=== PATIENT | female | born 1960 | race Caucasian/White ===

== ENCOUNTER 2020-12-11 11:43 | Outpatient (REF) | payer OTHER, SELFPAY | END 2020-12-11 11:44 | disposition home or self-care (01) | LOC: HO.LAB 11:43 | PROVIDERS: Visit Provider Internal Medicine | DX: Z20.822 Contact with and (suspected) exposure to COVID-19 (principal) | CPT/HCPCS: 36415; C9803; U0003; U0005 ==

== ENCOUNTER 2020-12-26 14:31 | Outpatient (REF) | payer OTHER, SELFPAY ==
[2020-12-26 15:08] LABS: COVID-19 Test Negative (Negative); IDNOW Serial# 55D5AD1C
== END 2020-12-26 14:32 | disposition home or self-care (01) ==
LOC: HO.LAB 14:31
PROVIDERS: Visit Provider Internal Medicine
DX: Z20.822 Contact with and (suspected) exposure to COVID-19 (principal)
CPT/HCPCS: 36415; 87635; C9803

== ENCOUNTER 2021-02-20 12:48 | Outpatient (REF) | payer OTHER, SELFPAY ==
[2021-02-20 14:19] LABS: MANUAL DIFF FLAG NO
[2021-02-20 14:33] LABS: Basophils Percent Auto 0.7 % (0-2); Eosinophils Absolute Auto 0.1 X10*3/uL (0.0-0.4); Hematocrit 39.2 % (37-47); Imm Gran Abs Auto 0.01 X10*3/uL (0.00-0.03); Imm Gran Pct Auto 0.2 % (0.0-0.4); Lymphocytes Absolute Auto 2.2 X10*3/uL (1.2-4.9); Lymphocytes Percent Auto 37.9 % (20-40); Mean Corpuscular HGB Conc 33.2 g/dl (31.0-35.0); Mean Corpuscular Hemoglobin 28.4 pg (27.0-33.0); Mean Corpuscular Volume 85.8 fL (80-98); Mean Platelet Volume 10.5 fL (9.4-12.3); Monocytes Absolute Auto 0.4 X10*3/uL (0.1-1.2); Monocytes Percent Auto 6.5 % (2-11); Neutrophils Absolute Auto 3.1 X10*3/uL (2.0-8.3); Neutrophils Percent Auto 53.7 % (45-73); Platelet Count 381 X10*3/uL (160-400); Red Blood Count 4.57 X10*6/uL (4.20-5.50); Red Cell Distribution Width 12.4 % (11.0-16.0); White Blood Count 5.7 X10*3/uL (4.8-10.8)
[2021-02-20 15:04] LABS: Alanine Aminotransferase 18 U/L (0-31); Albumin Level 4.1 g/dL (3.5-5.0); Alkaline Phosphatase 97 U/L (39-117); Anion Gap 15 (12-20); Aspartate Amino Transferase 15 U/L (5-31); Bilirubin Total 0.5 mg/dL (0.0-1.0); Blood Urea Nitrogen 15 mg/dL (9-16); Carbon Dioxide 25 mmol/L (22-29); Chloride 102 mmol/L (96-108); Estimated Glomerular Filt Rate > 60; Glucose Random 382 mg/dL (60-115); Potassium 4.9 mmol/L (3.3-5.1); Sodium 137 mmol/L (135-145); Total Protein 7.4 g/dL (6.5-8.0)
== END 2021-02-20 12:49 | disposition home or self-care (01) ==
LOC: HO.LAB 12:48
PROVIDERS: PCP Pediatrics; Visit Provider Dermatology
DX: L40.0 Psoriasis vulgaris (principal); Z79.899 Other long term (current) drug therapy
CPT/HCPCS: 36415; 80053; 85025

== ENCOUNTER 2022-12-03 10:46 | Observation (INO) | payer OTHER, SELFPAY ==
[2022-12-03] VITALS (9 sets, daily range): BP systolic 144–158; BP diastolic 65–72; PULSE 101–122; RESP 15–22; TEMP 36.2–37.6; O2SAT 90–95; BMI 33.9; BMI 34.1
--- NOTE | ~2022-12-03 | XR_ITS ---
EXAMINATION: XR CHEST CLINICAL INFORMATION: Hypoxia. Wheezing. COMPARISON: Chest x-ray and CTA chest 02/05/2020 TECHNIQUE: Frontal view of the chest was obtained. FINDINGS: Cardiac silhouette is normal in size. The lungs are adequately aerated. There is no lobar consolidation. No pleural effusion or pneumothorax. XR/XR chest 1V IMPRESSION: No acute pulmonary pathology.
[2022-12-03] MEDS: Albuterol Sulfate (0.083%) 2.5 MG/3 ML VIAL.NEB 10 MG INHALE (11:15)
--- NOTE | 2022-12-03 11:27 | ED.SOB ---
HPI - SOB/Dyspnea General Chief Complaint: Dyspnea Stated Complaint: Diff breathing, wheezing per EMS Time Seen by Provider: 12/03/22 11:05 Source: patient, EMS and motor vehicle parts interpreter Mode of arrival: EMS Limitations: no limitations History of Present Illness HPI Narrative: 62 yo Swedish speaking female with history of obesity, asthma, DM, hypothyroidism who presents to the ER from home for evaluation of SOB, coughing and wheezing for the last 2 days. She states she has had chest tightness and wheezing that has gotten worse for the last 2 days. She has been using her at home asthma medications without any improvement. She reports subjective fevers at home, denies any sick contacts. She is not bringing up any phelgm when she coughs. The cough is keeping her up at night. She reports being admitted in the past for her asthma but has never been intubated. MD elicited complaint: shortness of breath and cough Pertinent past history: asthma Onset (ago): day(s) (2) Context: recent illness Timing: progressively worsening Severity: severe Exacerbating factors: exertion, movement and coughing Relieving factors: nothing Known history of: asthma Associated symptoms: fever, cough and wheezing Treatment prior to arrival: oxygen and bronchodilator Related Data Home oxygen amount: none Home Medications Medication Instructions Recorded Confirmed insulin glargine 100 unit/mL (3 45 unit subcut BEDTIME 12/03/22 12/03/22 mL) subcutaneous pen (Lantus Solostar U-100 Insulin) levothyroxine 175 mcg tablet 1 tab PO DAILY@0600 12/03/22 12/03/22 Allergies Allergy/AdvReac Type Severity Reaction Status Date / Time No Known Allergies Allergy Verified 12/03/22 10:52 [No Known Allergies*] Review of Systems Review of Systems: Yes all other systems are reviewed and are negative [facility] Past Medical History Medical History (Updated 12/03/22 @ 13:15 by Jerry Azevedo) Asthma Diabetes type 2, controlled Hypothyroid Social History Social History Alcohol intake: never Smoked in Last 30 Days: No Use of substances other than those prescribed or required for medical reasons: No Advance Directives: No Advance Directives Information Provided: Yes Physical Exam Vital Signs: Vital Signs: Last Vital Signs Temp 99.7 F 12/03/22 13:17 Pulse 122 H 12/03/22 14:07 Resp 16 12/03/22 14:07 BP 158/72 H 12/03/22 13:43 Pulse Ox 92 12/03/22 13:43 O2 Del Method 12/03/22 13:43 BMI result Body Mass Index 33.9 Appearance: Alert. Oriented X3. No acute distress. Eyes: Pupils equal, round and reactive to light. ENT: Pharynx normal. Neck: Normal inspection. Neck supple. CVS: Tachycardic, regular rhythm, heart rate 120. Pulses normal. Respiratory: Mild respiratory distress. Breath sounds with audible wheezing, prolonged expiratory phase with inspiratory and expiratory wheezing throughout. Abdomen: Obese, soft and nontender. +BS x4 Skin: Skin warm and dry. Normal skin color. Normal skin turgor. No rashes. Extremities: No lower extremity edema. Neuro: Oriented X 3. No motor deficit. No sensory deficit. Course Course Course Narrative: 62-year-old female presenting for evaluation of shortness of breath and wheezing for the last 2 days. Arrives to the ER saturating 90% on room air. She has audibly wheezy and tachycardic. She received 100 mg of Solu-Cortef and a DuoNeb in route. Will order 10 mg of albuterol now, labs and reassess. Reevaluation(s) Reevaluation #1: Patient continues to be tight and wheezy, minimal improvement after nebulized treatment here. Chest x-ray without pneumonia. Concern she will need admission. Medications Administered Discontinued Medications Generic Name Dose Route Start Last Admin Trade Name Freq PRN Reason Stop Dose Admin Albuterol Sulfate 10 mg 12/03/22 11:09 12/03/22 11:15 Albuterol Sulfate (0.083%) 2.5 Mg/3 Ml Vial.Neb INHALE 12/03/22 11:10 10 mg ONCE ONE Administration Albuterol Sulfate 5 mg 12/03/22 13:32 12/03/22 14:07 Albuterol Sulfate (0.083%) 2.5 Mg/3 Ml Vial.Neb INHALE 12/03/22 13:33 5 mg ONCE ONE Administration Sodium Chloride 1,000 mls @ 999 mls/hr 12/03/22 13:00 12/03/22 14:30 Ns IVCONT 12/03/22 14:00 999 mls/hr .Q1H1M CRISTEL Administration Insulin Human Lispro 10 unit 12/03/22 13:31 12/03/22 14:30 Insulin Lispro 100 Unit/Ml 3 Ml Vial SUBCUT 12/03/22 13:32 10 unit ONCE ONE Administration Methylprednisolone Sodium Succinate 60 mg 12/03/22 13:31 12/03/22 14:30 Methylprednisolone Sod Succ 125 Mg/2 Ml Vial IVPUSH 12/03/22 13:32 60 mg ONCE ONE Administration Medical Decision Making Medical Decision Making [facility] Narrative: 62-year-old female with history of asthma, diabetes, hypothyroidism presents to the ER for evaluation of 2 days of shortness of breath and wheezing along with coughing and subjective fevers. On arrival to the ER she is audibly wheezy, saturating 90% on room air. She is able to speak in complete sentences. Chest x-ray was performed, showing no pneumonia. Viral studies were done which were negative for COVID, flu, RSV. Lab workup was unremarkable. She was given 2 rounds of albuterol nebulizer, IV steroids with minimal relief. She remains with a pulse oximetry of 90-92%. Still has extensive wheezing bilaterally. Will plan to admit for further management of acute asthma exacerbation. Differential Diagnosis Differential Diagnoses: The differential diagnosis associated with the presentation includes Acute asthma exacerbation, acute CHF exacerbation, pneumonia, viral syndrome, COVID, flu, RSV, pneumonitis, VCD Admission/Observation Consideration of admission/observation: Escalation of care including admission/observation considered No improvement after multiple breathing treatments, will require admission for further management Consult Healthcare Provider Management of the patient was discussed with: Hospitalist Lab Data [facility] Lab Attestation statement: I reviewed the patient's lab results. Hyperglycemia without any evidence anion gap for diabetic ketoacidosis 12/03/22 11:47 12/03/22 11:47 Labs: Lab Results 12/03/22 12/03/22 12/03/22 Range/Units 11:12 11:47 11:47 WBC 5.7 (4.8-10.8) X10*3/uL RBC 4.76 (4.20-5.50) X10*6/uL Hgb 13.6 (12.0-16.0) g/dl Hct 41.1 (37.0-47.0) % MCV 86.3 (80.0-98.0) fL MCH 28.6 (27.0-33.0) pg MCHC 33.1 (31.0-35.0) g/dl RDW 12.0 (11.0-16.0) % Plt Count 236 (160-400) X10*3/uL MPV 10.2 (9.4-12.3) fL Immature Gran % (Auto) 0.0 (0.0-0.4) % Neut % (Auto) 57.3 (45-73) % Lymph % (Auto) 31.1 (20-40) % [place] % (Auto) 9.9 (2-11) % Eos % (Auto) 1.2 (0-4) % Baso % (Auto) 0.5 (0-2) % Lymph # (Auto) 1.8 (1.2-4.9) X10*3/uL [place] # (Auto) 0.6 (0.1-1.2) X10*3/uL Eos # (Auto) 0.1 (0.0-0.4) X10*3/uL Baso # (Auto) 0.0 (0.0-0.2) X10*3/uL Abs Immat Gran (auto) 0.00 (0.00-0.03) X10*3/uL Absolute Neuts (auto) 3.3 (2.0-8.3) x10*3/uL Absolute Nucleated RBC 0.000 (0.0-0.012) X10*3/uL Nucleated RBC % (auto) 0.0 (0.0-0.2) /100WBC Sodium 136 (135-145) mmol/L Potassium 3.7 D (3.3-5.1) mmol/L Chloride 103 (96-108) mmol/L Carbon Dioxide 24 (22-29) mmol/L Anion Gap 13 (12-20) BUN 14 (9-16) mg/dL Creatinine 0.88 (0.5-1.4) mg/dL Estim Creat Clear Calc 78.0 Estimated GFR > 60 Random Glucose 324 H (60-115) mg/dL Calcium 8.6 D (8.4-10.2) mg/dL Total Bilirubin 0.6 (0.0-1.0) mg/dL AST 18 (5-31) U/L ALT 23 (0-31) U/L Alkaline Phosphatase 91 (39-117) U/L B-Natriuretic Peptide (<100) pg/mL Total Protein 6.9 (6.5-8.0) g/dL Albumin 3.8 (3.5-5.0) g/dL Influenza Type A (PCR) NEGATIVE (Negative) Influenza Type B (PCR) NEGATIVE (Negative) RSV RNA Qual (PCR) NEGATIVE (Negative) SARS-CoV-2 RNA (RT-PCR) NEGATIVE (Negative) 12/03/22 Range/Units 11:47 WBC (4.8-10.8) X10*3/uL RBC (4.20-5.50) X10*6/uL Hgb (12.0-16.0) g/dl Hct (37.0-47.0) % MCV (80.0-98.0) fL MCH (27.0-33.0) pg MCHC (31.0-35.0) g/dl RDW (11.0-16.0) % Plt Count (160-400) X10*3/uL MPV (9.4-12.3) fL Immature Gran % (Auto) (0.0-0.4) % Neut % (Auto) (45-73) % Lymph % (Auto) (20-40) % [place] % (Auto) (2-11) % Eos % (Auto) (0-4) % Baso % (Auto) (0-2) % Lymph # (Auto) (1.2-4.9) X10*3/uL [place] # (Auto) (0.1-1.2) X10*3/uL Eos # (Auto) (0.0-0.4) X10*3/uL Baso # (Auto) (0.0-0.2) X10*3/uL Abs Immat Gran (auto) (0.00-0.03) X10*3/uL Absolute Neuts (auto) (2.0-8.3) x10*3/uL Absolute Nucleated RBC (0.0-0.012) X10*3/uL Nucleated RBC % (auto) (0.0-0.2) /100WBC Sodium (135-145) mmol/L Potassium (3.3-5.1) mmol/L Chloride (96-108) mmol/L Carbon Dioxide (22-29) mmol/L Anion Gap (12-20) BUN (9-16) mg/dL Creatinine (0.5-1.4) mg/dL Estim Creat Clear Calc Estimated GFR Random Glucose (60-115) mg/dL Calcium (8.4-10.2) mg/dL Total Bilirubin (0.0-1.0) mg/dL AST (5-31) U/L ALT (0-31) U/L Alkaline Phosphatase (39-117) U/L B-Natriuretic Peptide < 10 (<100) pg/mL Total Protein (6.5-8.0) g/dL Albumin (3.5-5.0) g/dL Influenza Type A (PCR) (Negative) Influenza Type B (PCR) (Negative) RSV RNA Qual (PCR) (Negative) SARS-CoV-2 RNA (RT-PCR) (Negative) Independent Interpretation I performed an independent interpretation of an: EKG and Plain X-Ray Interpretation: EKG with sinus tachycardia, ventricular rate 120 beats per minute, artifact present, normal NM interval, normal QTC, no ST segment elevations or depressions. Chest x-ray is clear without any evidence of pneumonia or effusion Radiology Impression Discussion of test interpretation with radiology: I have reviewed the radiologist's reading. Radiologist Impression: radiologist impression is no acute pulmonary pathology Independent Historian Clinical information obtained from an independent historian. History obtained from or confirmed by: EMS External Record Review External record reviewed: Prior outpatient labs and Prior outpatient radiology Prescription Management I considered prescription management with: Antibiotic No infiltrate on x-ray, hold off on antibiotics for now. No history of COPD Chronic Conditions Patient?s care impacted by: Other (Asthma) Critical Care Time Critical Care Time Critical Care Time: Yes Total Critical Care Time: 36 Attestation: I have personally provided critical care time exclusive of time spent on separately billable procedures. Time includes review of lab data, radiology results, discussion with consultants, and monitoring for potential decompensation. Intervention performed as documented. Discharge Plan Discharge Clinical Impression: Asthma with exacerbation Patient Disposition: Admitted As Inpatient
[2022-12-03 11:57] LABS: MANUAL DIFF FLAG NO
[2022-12-03 11:57] LABS: Influenza A PCR NEGATIVE (Negative); Influenza B PCR NEGATIVE (Negative); Resp Syncy Virus RNA Qual PCR NEGATIVE (Negative); SARS COV2 PCR INHOUSE NEGATIVE (Negative)
[2022-12-03 11:58] LABS: Basophils Percent Auto 0.5 % (0-2); Eosinophils Absolute Auto 0.1 X10*3/uL (0.0-0.4); Eosinophils Percent Auto 1.2 % (0-4); Hematocrit 41.1 % (37.0-47.0); Hemoglobin 13.6 g/dl (12.0-16.0); Lymphocytes Absolute Auto 1.8 X10*3/uL (1.2-4.9); Lymphocytes Percent Auto 31.1 % (20-40); Mean Corpuscular HGB Conc 33.1 g/dl (31.0-35.0); Mean Corpuscular Hemoglobin 28.6 pg (27.0-33.0); Mean Corpuscular Volume 86.3 fL (80.0-98.0); Mean Platelet Volume 10.2 fL (9.4-12.3); Monocytes Absolute Auto 0.6 X10*3/uL (0.1-1.2); Monocytes Percent Auto 9.9 % (2-11); Neutrophils Absolute Auto 3.3 x10*3/uL (2.0-8.3); Neutrophils Percent Auto 57.3 % (45-73); Platelet Count 236 X10*3/uL (160-400); Red Blood Count 4.76 X10*6/uL (4.20-5.50); White Blood Count 5.7 X10*3/uL (4.8-10.8)
[2022-12-03 12:12] LABS: Alanine Aminotransferase 23 U/L (0-31); Albumin Level 3.8 g/dL (3.5-5.0); Alkaline Phosphatase 91 U/L (39-117); Anion Gap 13 (12-20); Aspartate Amino Transferase 18 U/L (5-31); Bilirubin Total 0.6 mg/dL (0.0-1.0); Blood Urea Nitrogen 14 mg/dL (9-16); Calcium 8.6 mg/dL (8.4-10.2); Carbon Dioxide 24 mmol/L (22-29); Chloride 103 mmol/L (96-108); Estimated Glomerular Filt Rate > 60; Glucose Random 324 mg/dL (60-115); Potassium 3.7 mmol/L (3.3-5.1); Sodium 136 mmol/L (135-145); Total Protein 6.9 g/dL (6.5-8.0)
[2022-12-03 12:18] LABS: B Type Natriuretic Peptide < 10 pg/mL (<100)
--- NOTE | 2022-12-03 12:59 | ECG_ITS ---
Test Reason : sob Blood Pressure : / mmHG Vent. Rate : 121 BPM Atrial Rate : 121 BPM P-R Int : 128 ms QRS Dur : 072 ms QT Int : 318 ms P-R-T Axes : 077 047 -41 degrees QTc Int : 451 ms Sinus tachycardia T wave abnormality, consider inferior ischemia Abnormal ECG When compared to the previous EKG of No significant changes seen Referred By: Liyah Huang Electronically Signed By:Florentino Rosas
--- NOTE | 2022-12-03 14:01 | PHA.MEDREC ---
Pharmacy Consult ? Medication Reconciliation Pharmacy has completed the medication reconciliation. Patient states she is only on glargine 45 units at bed and levothyroxine 175 mcg in the morning
[2022-12-03] MEDS: Albuterol Sulfate (0.083%) 2.5 MG/3 ML VIAL.NEB 5 MG INHALE (14:07)
[2022-12-03] MEDS: methylPREDNISolone Sod Succ 125 MG/2 ML VIAL 60 MG IVPUSH (14:30)
[2022-12-03] MEDS: Insulin Lispro 100 UNIT/ML 3 ML VIAL 10 UNIT SUBCUT (14:30)
[2022-12-03] MEDS: 0.9 % Sodium Chloride 1,000 ML 999 ML IVCONT (14:30)
--- NOTE | 2022-12-03 14:37 | PC.NURSE ---
pt medicated per provider order, 1L NS running, resting quietly.
--- NOTE | 2022-12-03 15:27 | PM.IMHP ---
History of Present Illness Date of Service: 12/03/22 Attending physician on admission: Kam [facility] Chief Complaint: SOB, wheezing Pt is a 62-year-old female with a PMH significant for asthma, hypothyroidism, HTN, HLD, and insulin-dependent diabetes who presents to the ED with?wheezing and SOB x3 days. Cough occasionally productive of yellowish sputum. Pt states she has been taking her home inhalers with little to no improvement. Has been experiencing chest tightness with inspiration. Patient also states that she has been admitted to the hospital before for acute asthma exacerbations. Patient denies fever, chills, nausea, vomiting, diarrhea. No abdominal pain. In the ED patient was afebrile, tachycardic up to 122, tachypneic up to 22, and satting at 90% O2 on RA. Labs were significant for random glucose of 324, otherwise unremarkable. Patient tested negative for influenza types A and B, RSV, COVID. CXR was clear for acute cardiopulmonary disease. EKG demonstrated sinus tachycardia with no evidence of ST elevations or depressions. Pt was treated with DuoNebs, IVF, and Solu-Medrol. Pt will be admitted to the hospital on observation for severe persistent asthma with acute exacerbation. Review of Systems Review of Systems: SOB Wheezing Persistent cough productive of yellowish sputum Chest tightness with inspiration No fever, chills, nausea, diarrhea, abdominal pain Yes all other systems are reviewed and are negative [facility] Medical History Asthma Diabetes type 2, controlled Hypothyroid Social History Household Members: Family Housing: House Alcohol intake: never Patient Tobacco Use Status: Former Tobacco user Smoked in Last 30 Days: No Use of substances other than those prescribed or required for medical reasons: No Currently Displaying Signs/Symptoms of Drug Intoxication Withdrawal: No Any prior treatment program specific to substance use: No Have you been hit, kicked, punched, or otherwise hurt by someone within the past year? If so, by whom?: No Do you feel safe in your current relationship?: Yes Is there a partner from a previous relationship who is making you feel unsafe now?: No Are you made to feel afraid or neglected: No Advance Directives: No Advance Directives Information Provided: Yes Do you have thoughts of harming others: None Do you have a plan to hurt others: No Plan Recently lost weight without trying: No Eating poorly because of decreased appetite: No Nutrition Risks: No Nutritional Risk Patient : No : No Poor oral hygiene: No Meds Allergies Allergy/AdvReac Type Severity Reaction Status Date / Time No Known Allergies Allergy Verified 12/03/22 10:52 [No Known Allergies*] Active Medications: Current Medications Pharmacy Consult (Consult Rx Perform Med Rec) 1 each MISCELLANE ONCE PRN PRN Reason: Consult order Home Medications Medication Instructions Recorded Confirmed Last Taken Type insulin glargine 100 unit/mL (3 45 unit subcut BEDTIME 12/03/22 12/03/22 12/02/22 History mL) subcutaneous pen (Lantus Solostar U-100 Insulin) levothyroxine 175 mcg tablet 1 tab PO DAILY@0600 12/03/22 12/03/22 12/03/22 History Physical Exam Vital Signs and Narrative: Vital Signs: Last Vital Signs Temp 99.7 F 12/03/22 13:17 Pulse 122 H 12/03/22 14:07 Resp 16 12/03/22 14:07 BP 158/72 H 12/03/22 13:43 Pulse Ox 92 12/03/22 13:43 O2 Del Method 12/03/22 13:43 BMI result Body Mass Index 33.9 Constitutional: Alert, in no acute distress. Mental Status: Oriented to person, place and time. Eyes: Pupils are equal, round, and reactive to light. Ear, Nose, and Throat: Oropharynx clear, mucous membranes moist. Ears and nose without deformities. Trachea midline. Respiratory: Audible wheezing. Diffuse wheezing throughout bilaterally. Cardiovascular: S1, S2 regular. No murmurs, rubs, or gallops. Gastrointestinal: Abdomen soft, non-tender, non-distended. Normal bowel sounds. Neurologic: Cranial nerves II-XII are grossly intact bilaterally. No focal neurological deficits. Moves all extremities spontaneously. Skin: No rashes or lesions noted. Musculoskeletal: No cyanosis or clubbing. Extremities: Chronic non-pitting edema bilaterally. Psychiatric: Normal mood and affect. Results Labs 12/03/22 11:47 12/03/22 11:47 Labs: Laboratory Results - last 24 hr 12/03/22 12/03/22 12/03/22 11:12 11:47 11:47 MCV 86.3 MCH 28.6 MCHC 33.1 RDW 12.0 Plt Count 236 MPV 10.2 Immature Gran % (Auto) 0.0 Neut % (Auto) 57.3 Lymph % (Auto) 31.1 [place] % (Auto) 9.9 Eos % (Auto) 1.2 Baso % (Auto) 0.5 Lymph # (Auto) 1.8 [place] # (Auto) 0.6 Eos # (Auto) 0.1 Baso # (Auto) 0.0 Abs Immat Gran (auto) 0.00 Absolute Neuts (auto) 3.3 Absolute Nucleated RBC 0.000 Nucleated RBC % (auto) 0.0 Anion Gap 13 Estim Creat Clear Calc 78.0 Estimated GFR > 60 Random Glucose 324 H Calcium 8.6 D Total Bilirubin 0.6 AST 18 ALT 23 Alkaline Phosphatase 91 B-Natriuretic Peptide Total Protein 6.9 Albumin 3.8 Influenza Type A (PCR) NEGATIVE Influenza Type B (PCR) NEGATIVE RSV RNA Qual (PCR) NEGATIVE SARS-CoV-2 RNA (RT-PCR) NEGATIVE 12/03/22 11:47 MCV MCH MCHC RDW Plt Count MPV Immature Gran % (Auto) Neut % (Auto) Lymph % (Auto) [place] % (Auto) Eos % (Auto) Baso % (Auto) Lymph # (Auto) [place] # (Auto) Eos # (Auto) Baso # (Auto) Abs Immat Gran (auto) Absolute Neuts (auto) Absolute Nucleated RBC Nucleated RBC % (auto) Anion Gap Estim Creat Clear Calc Estimated GFR Random Glucose Calcium Total Bilirubin AST ALT Alkaline Phosphatase B-Natriuretic Peptide < 10 Total Protein Albumin Influenza Type A (PCR) Influenza Type B (PCR) RSV RNA Qual (PCR) SARS-CoV-2 RNA (RT-PCR) Imaging Radiologist's Impressions: Impressions Chest X-Ray 12/03/22 12:04 IMPRESSION: No acute pulmonary pathology. Assessment and Plan (1) Asthma with exacerbation: Status: Acute Plan Pt is a 62-year-old female with a PMH significant for asthma, hypothyroidism, HTN, HLD, and insulin-dependent diabetes who presents to the ED with?wheezing and SOB x3 days. Pt will be admitted to the hospital on observation for treatment of severe persistent asthma with acute exacerbation. Severe persistent asthma with acute exacerbation Patient with audible wheezing x3 days, home inhalers have provided virtually no relief Patient tachycardic at 122, not hypoxic satting at 92 % O2 on room air Solu-Medrol 40 mg q.8 DuoNebs q4 while awake Admit to observation Insulin-dependent Diabetes Hold home meds SSI Hypothyroidism Continue levothyroxine Full Code Attending:?Dr. Larsen DVT Prophylaxis: Lovenox Patient will be admitted to observation for treatment of severe persistent asthma with acute exacerbation. Time Spent With Patient Time: Total time managing care of this patient today ____ minutes. Quality Stroke Does the patient have a stroke diagnosis?: No VTE Prior VTE?: No VTE Risk Level:: Medical - moderate - high VTE Device Contraindication: Treatment Not Indicated VTE Drug Contraindication: N/A - Med Ordered
--- NOTE | 2022-12-03 16:42 | PC.NURSE ---
RN-RN report called into S3.
[2022-12-03 16:53] LABS: Glucose, Whole Blood 361 mg/dL (60-115)
[2022-12-03 17:10] LABS: Glucose, Whole Blood 348 mg/dL (60-115)
[2022-12-03] MEDS: Enoxaparin Sodium 40 MG/0.4 ML SYRINGE SUBCUT (17:26)
[2022-12-03] MEDS: Insulin Lispro 100 UNIT/ML 3 ML VIAL SUBCUT ×2 (17:27→21:26)
[2022-12-03 20:13] LABS: Glucose, Whole Blood 440 mg/dL (60-115)
[2022-12-03] MEDS: Insulin Regular, Human 100 UNIT/ML 3 ML VIAL IVPUSH (21:24)
[2022-12-03] MEDS: methylPREDNISolone Sod Succ 40 MG/ML VIAL IVPUSH (21:24)
[2022-12-03] MEDS: Insulin Glargine,Hum.rec.anlog 100 UNIT/ML 10 ML VIAL 31 UNIT SUBCUT (21:25)
[2022-12-03] MEDS: 0.9 % Sodium Chloride Flush 3 ML SYRINGE IVFLUSH (22:29)
[2022-12-04] VITALS (9 sets, daily range): BP systolic 132–167; BP diastolic 56–87; PULSE 80–120; RESP 16–22; TEMP 35.9–36.6; O2SAT 90–98
[2022-12-04] MEDS: methylPREDNISolone Sod Succ 40 MG/ML VIAL IVPUSH (05:17)
[2022-12-04] MEDS: Levothyroxine Sodium 175 MCG TABLET PO (05:23)
[2022-12-04 07:25] LABS: Glucose, Whole Blood 394 mg/dL (60-115)
[2022-12-04] MEDS: Insulin Lispro 100 UNIT/ML 3 ML VIAL SUBCUT ×5 (07:54→21:10)
[2022-12-04] MEDS: 0.9 % Sodium Chloride Flush 3 ML SYRINGE IVFLUSH ×3 (07:55→21:17)
--- NOTE | 2022-12-04 08:54 | HO.PM.IMPN ---
Subjective Subjective Date of Service: 12/04/22 Interval History: f/u on asthma exacerbation feels better, still wheezing Physical Exam Vital Signs: Vital Signs: Last Vital Signs Temp 96.6 F L 12/04/22 07:29 Pulse 95 12/04/22 08:13 Resp 18 12/04/22 08:13 BP 138/68 12/04/22 07:29 Pulse Ox 92 12/04/22 07:29 O2 Del Method 12/04/22 07:29 BMI result Body Mass Index 34.1 Const: Other: General: AO X 3, no acute distress Resp: ins/ex wheezes CVS: S1,S2,RRR GI: +BS, NT, no distention Skin: No rash Neuro: motor grossly intact Psych: appropriate affect Objective Data Active Medications Acetaminophen (Acetaminophen 325 Mg Tablet) 650 mg PO Q6H PRN PRN Reason: Pain, Mild (Pain Scale 1-3) Albuterol Sulfate 2.5 mg/ (Ipratropium [place] 0.5 mg) 0 mg INHALE RQ4H WHILE AWAKE [facility] Last Admin: 12/04/22 08:10 Dose: 2.5 each Documented By: ANDRÉS Docusate Sodium (Docusate Sodium 100 Mg Capsule) 100 mg PO DAILY PRN PRN Reason: Constipation Enoxaparin Sodium (Enoxaparin Sodium 40 Mg/0.4 Ml Syringe) 40 mg SUBCUT Q24H [facility] Last Admin: 12/03/22 17:26 Dose: 40 mg Documented By: SAHARA-ULISES Glucose (Glucose Gel 15 Gm Gel..Gram.) 15 gm PO Q15M PRN; Protocol PRN Reason: per Hypoglycemia Standing Ord. Dextrose (D10) 250 mls @ 750 mls/hr IV Q15M PRN; Protocol PRN Reason: per Hypoglycemia Standing Ord. Insulin Glargine (Insulin Glargine,Hum.Rec.Anlog 100 Unit/Ml 10 Ml Vial) 31 unit SUBCUT BEDTIME [facility] Last Admin: 12/03/22 21:25 Dose: 31 unit Documented By: JUAN Insulin Human Lispro (Insulin Lispro 100 Unit/Ml 3 Ml Vial) 0 unit SUBCUT QIDACHS [facility]; Protocol Last Admin: 12/04/22 07:54 Dose: 10 unit Documented By: GRACE Levothyroxine Sodium (Levothyroxine Sodium 175 Mcg Tablet) 175 mcg PO DAILY@0600 [facility] Last Admin: 12/04/22 05:23 Dose: 175 mcg Documented By: JUAN Methylprednisolone Sodium Succinate (Methylprednisolone Sod Succ 40 Mg/Ml Vial) 40 mg IVPUSH Q8H [facility] Last Admin: 12/04/22 05:17 Dose: 40 mg Documented By: JUAN Ondansetron HCl (Ondansetron Hcl 4 Mg/2 Ml Vial) 4 mg IVPUSH Q8H PRN PRN Reason: Nausea and Vomiting Pharmacy Consult (Consult Rx Perform Med Rec) 1 each MISCELLANE ONCE PRN PRN Reason: Consult order Sodium Chloride (0.9 % Sodium Chloride Flush 3 Ml Syringe) 3 ml IVFLUSH QSHIFT [facility] Last Admin: 12/04/22 07:55 Dose: 3 ml Documented By: GRACE Labs 12/03/22 11:47 12/03/22 11:47 Labs: Laboratory Results - last 24 hr 12/03/22 12/03/22 12/03/22 11:12 11:47 11:47 MCV 86.3 MCH 28.6 MCHC 33.1 RDW 12.0 Plt Count 236 MPV 10.2 Immature Gran % (Auto) 0.0 Neut % (Auto) 57.3 Lymph % (Auto) 31.1 [place] % (Auto) 9.9 Eos % (Auto) 1.2 Baso % (Auto) 0.5 Lymph # (Auto) 1.8 [place] # (Auto) 0.6 Eos # (Auto) 0.1 Baso # (Auto) 0.0 Abs Immat Gran (auto) 0.00 Absolute Neuts (auto) 3.3 Absolute Nucleated RBC 0.000 Nucleated RBC % (auto) 0.0 Anion Gap 13 Estim Creat Clear Calc 78.0 Estimated GFR > 60 POC Glucose Random Glucose 324 H Calcium 8.6 D Total Bilirubin 0.6 AST 18 ALT 23 Alkaline Phosphatase 91 B-Natriuretic Peptide Total Protein 6.9 Albumin 3.8 Influenza Type A (PCR) NEGATIVE Influenza Type B (PCR) NEGATIVE RSV RNA Qual (PCR) NEGATIVE SARS-CoV-2 RNA (RT-PCR) NEGATIVE 12/03/22 12/03/22 12/03/22 11:47 16:50 17:06 MCV MCH MCHC RDW Plt Count MPV Immature Gran % (Auto) Neut % (Auto) Lymph % (Auto) [place] % (Auto) Eos % (Auto) Baso % (Auto) Lymph # (Auto) [place] # (Auto) Eos # (Auto) Baso # (Auto) Abs Immat Gran (auto) Absolute Neuts (auto) Absolute Nucleated RBC Nucleated RBC % (auto) Anion Gap Estim Creat Clear Calc Estimated GFR POC Glucose 361 H* 348 H Random Glucose Calcium Total Bilirubin AST ALT Alkaline Phosphatase B-Natriuretic Peptide < 10 Total Protein Albumin Influenza Type A (PCR) Influenza Type B (PCR) RSV RNA Qual (PCR) SARS-CoV-2 RNA (RT-PCR) 12/03/22 12/04/22 19:59 07:16 MCV MCH MCHC RDW Plt Count MPV Immature Gran % (Auto) Neut % (Auto) Lymph % (Auto) [place] % (Auto) Eos % (Auto) Baso % (Auto) Lymph # (Auto) [place] # (Auto) Eos # (Auto) Baso # (Auto) Abs Immat Gran (auto) Absolute Neuts (auto) Absolute Nucleated RBC Nucleated RBC % (auto) Anion Gap Estim Creat Clear Calc Estimated GFR POC Glucose 440 H* 394 H* Random Glucose Calcium Total Bilirubin AST ALT Alkaline Phosphatase B-Natriuretic Peptide Total Protein Albumin Influenza Type A (PCR) Influenza Type B (PCR) RSV RNA Qual (PCR) SARS-CoV-2 RNA (RT-PCR) Assessment and Plan (1) Asthma with exacerbation: Status: Acute Plan 62-year-old female with a PMH significant for asthma, hypothyroidism, HTN, HLD, and insulin-dependent diabetes who presents to the ED with?wheezing and SOB x3 days. Pt will be admitted to the hospital on observation for treatment of severe persistent asthma with acute exacerbation. Severe persistent asthma with acute exacerbation Patient with audible wheezing , home inhalers have provided virtually no relief Overall better Solu-Medrol 40 mg q.bid DuoNebs q4 while awake observe 1 more day, home tomorrow Insulin-dependent Diabetes with hyperglycemia d/t steroid Hold home meds SSI + additional insulin PRN Hypothyroidism Continue levothyroxine Full Code Attending:?Dr. Larsen DVT Prophylaxis: Lovenox Patient will be admitted to observation for treatment of severe persistent asthma with acute exacerbation. Time Spent With Patient Time: Total time managing care of this patient today ____ minutes. Time Spent With Patient Time: Total time managing care of this patient today ____ minutes. Quality Stroke Does the patient have a stroke diagnosis?: No VTE Prior VTE?: No VTE Risk Level:: Medical - moderate - high VTE Device Contraindication: Treatment Not Indicated VTE Drug Contraindication: N/A - Med Ordered
[2022-12-04 11:09] LABS: Glucose, Whole Blood 428 mg/dL (60-115)
--- NOTE | 2022-12-04 13:04 | PC.NURSE ---
IV methylpredisolone held per Dr Larsen.
[2022-12-04 16:40] LABS: Glucose, Whole Blood 427 mg/dL (60-115)
[2022-12-04] MEDS: Insulin Lispro 100 UNIT/ML 3 ML VIAL 7 UNIT SUBCUT (18:01)
[2022-12-04] MEDS: Enoxaparin Sodium 40 MG/0.4 ML SYRINGE SUBCUT (18:01)
[2022-12-04 20:41] LABS: Glucose, Whole Blood 402 mg/dL (60-115)
[2022-12-04] MEDS: Insulin Glargine,Hum.rec.anlog 100 UNIT/ML 10 ML VIAL 31 UNIT SUBCUT (21:10)
[2022-12-05] VITALS (9 sets, daily range): BP systolic 137–148; BP diastolic 62–72; PULSE 91–113; RESP 18–20; TEMP 36.1–36.4; O2SAT 92–100
[2022-12-05] MEDS: Acetaminophen 325 MG TABLET 650 MG PO (04:13)
[2022-12-05] MEDS: Levothyroxine Sodium 175 MCG TABLET PO (05:50)
[2022-12-05 07:57] LABS: Glucose, Whole Blood 243 mg/dL (60-115)
--- NOTE | 2022-12-05 08:08 | PM.DS ---
DS: Providers Provider Date of Service: 12/05/22 Date of admission: 12/03/22 16:11 Primary care physician: MARY ANN Baptiste DS: Diagnosis Discharge Diagnosis (1) Asthma with exacerbation: Status: Acute DS: Summary Hospital Course Hospital Course: Chief Complaint: SOB, wheezing Pt is a 62-year-old female with a PMH significant for asthma, hypothyroidism, HTN, HLD, and insulin-dependent diabetes who presents to the ED with?wheezing and SOB x3 days. Cough occasionally productive of yellowish sputum. Pt states she has been taking her home inhalers with little to no improvement.? Has been experiencing chest tightness with inspiration.? Patient also states that she has been admitted to the hospital before for acute asthma exacerbations.? Patient denies fever, chills, nausea, vomiting, diarrhea.? No abdominal pain. In the ED patient was afebrile, tachycardic up to 122, tachypneic up to 22, and satting at 90% O2 on RA. Labs were significant for random glucose of 324, otherwise unremarkable.? Patient tested negative for influenza types A and B, RSV, COVID. CXR was clear for acute cardiopulmonary disease. EKG demonstrated sinus tachycardia with no evidence of ST elevations or depressions. Pt was treated with DuoNebs, IVF, and Solu-Medrol. Pt will be admitted to the hospital on observation for severe persistent asthma with acute exacerbation. Hospital course: Patient was admitted with severe persistent asthma with acute exacerbation with audible wheezes, with no relief with home inhalers. Upon admission, she was treated with IV steroid, bronchodilators by Nebulizer and over the course of hospitalization has improved and will be transitioned to oral steroid and to continue home inahlers Insulin-dependent Diabetes with hyperglycemia d/t steroid, steroid reduced and will take for 2 more days for total of 5, resume home diabetes meds Hypothyroidism Continue levothyroxine Time Spent with Patient Time attestation: Total time managing care of this patient today ____ minutes. Discharge coordination time: Greater than 30 minutes Quality: Safe Use of Opioids Does Pt have an Active Cancer Diagnosis on the Problem List?: No Quality: Stroke Does the patient have a stroke diagnosis?: No Physical Exam Vital Signs: Vital Signs: Last Vital Signs Temp 97.4 F 12/05/22 07:48 Pulse 93 12/05/22 07:48 Resp 18 12/05/22 07:48 BP 137/62 12/05/22 07:48 Pulse Ox 99 12/05/22 07:48 O2 Del Method 12/05/22 07:48 BMI result Body Mass Index 34.1 Const: Other: General: AO X 3, no acute distress Resp: CTA bilateral CVS: S1,S2,RRR GI: +BS, NT, no distention Skin: No rash Neuro: motor grossly intact Psych: appropriate affect DS: Data Data Completed and Pending Labs on day of discharge: Laboratory Results - last 24 hr 12/04/22 12/04/22 12/04/22 10:59 16:37 20:33 POC Glucose 428 H* 427 H* 402 H* 12/05/22 07:47 POC Glucose 243 H Discharge Plan Discharge Anticipated Discharge Date/Time: 12/05/22 08:04 Patient Disposition: Home, Self-Care Referrals: Indigo Dumont FNP-C [Primary Care Provider] - 1 Week Discharge Medications: New albuterol sulfate 90 mcg/actuation HFA aerosol inhaler 2 inh inhalation Q6-8H PRN (Reason: shortness of breath or wheezing) Qty: 18 1RF prednisone 20 mg tablet 20 mg PO DAILY Qty: 3 0RF Continued levothyroxine 175 mcg tablet 1 tab PO DAILY@0600 insulin glargine [Lantus Solostar U-100 Insulin] 100 unit/mL (3 mL) insulin pen 45 unit subcut BEDTIME Diet: Diabetic diet Activity on Discharge: As tolerated Stand Alone Forms: Patient Portal Discharge page Care Plan Goals: recovery from shortness of breath Health Concerns: asthma diabetes with hyperglycemia Plan of Treatment: as above Assessment: as above
[2022-12-05] MEDS: Insulin Lispro 100 UNIT/ML 3 ML VIAL SUBCUT ×4 (08:22→20:34)
[2022-12-05] MEDS: 0.9 % Sodium Chloride Flush 3 ML SYRINGE IVFLUSH ×3 (08:24→20:40)
--- NOTE | 2022-12-05 10:18 | HO.PM.IMPN ---
Subjective Subjective Date of Service: 12/05/22 Interval History: f/u on asthma exacerbation feels better, still wheezing and feel worse today Physical Exam Vital Signs: Vital Signs: Last Vital Signs Temp 97.4 F 12/05/22 07:48 Pulse 93 12/05/22 07:48 Resp 18 12/05/22 07:48 BP 137/62 12/05/22 07:48 Pulse Ox 99 12/05/22 07:48 O2 Del Method 12/05/22 07:48 BMI result Body Mass Index 34.1 Const: Other: General: AO X 3, no acute distress Resp: diffuse insp/exp wheezes, some wob CVS: S1,S2,RRR GI: +BS, NT, no distention Skin: No rash Neuro: motor grossly intact Psych: appropriate affect Objective Data Active Medications Acetaminophen (Acetaminophen 325 Mg Tablet) 650 mg PO Q6H PRN PRN Reason: Pain, Mild (Pain Scale 1-3) Last Admin: 12/05/22 04:13 Dose: 650 mg Documented By: JUAN Albuterol Sulfate 2.5 mg/ (Ipratropium [place] 0.5 mg) 0 mg INHALE RQ4H WHILE AWAKE [facility] Last Admin: 12/05/22 07:36 Dose: 2.5 each Documented By: ANDRÉS Albuterol Sulfate 2.5 mg/ (Ipratropium [place] 0.5 mg) 0 mg INHALE Q4H PRN PRN Reason: Wheezing Last Admin: 12/05/22 03:42 Dose: 2.5 each Documented By: ABDI Docusate Sodium (Docusate Sodium 100 Mg Capsule) 100 mg PO DAILY PRN PRN Reason: Constipation Enoxaparin Sodium (Enoxaparin Sodium 40 Mg/0.4 Ml Syringe) 40 mg SUBCUT Q24H [facility] Last Admin: 12/04/22 18:01 Dose: 40 mg Documented By: GRACE Glucose (Glucose Gel 15 Gm Gel..Gram.) 15 gm PO Q15M PRN; Protocol PRN Reason: per Hypoglycemia Standing Ord. Dextrose (D10) 250 mls @ 750 mls/hr IV Q15M PRN; Protocol PRN Reason: per Hypoglycemia Standing Ord. Insulin Glargine (Insulin Glargine,Hum.Rec.Anlog 100 Unit/Ml 10 Ml Vial) 45 unit SUBCUT BEDTIME [facility] Insulin Human Lispro (Insulin Lispro 100 Unit/Ml 3 Ml Vial) 0 unit SUBCUT QIDACHS [facility]; Protocol Last Admin: 12/05/22 08:22 Dose: 4 unit Documented By: GRACE Levothyroxine Sodium (Levothyroxine Sodium 175 Mcg Tablet) 175 mcg PO DAILY@0600 [facility] Last Admin: 12/05/22 05:50 Dose: 175 mcg Documented By: JUAN Comments: will notify pharmacy Ondansetron HCl (Ondansetron Hcl 4 Mg/2 Ml Vial) 4 mg IVPUSH Q8H PRN PRN Reason: Nausea and Vomiting Pharmacy Consult (Consult Rx Perform Med Rec) 1 each MISCELLANE ONCE PRN PRN Reason: Consult order Sodium Chloride (0.9 % Sodium Chloride Flush 3 Ml Syringe) 3 ml IVFLUSH QSHIFT [facility] Last Admin: 12/05/22 08:24 Dose: 3 ml Documented By: GRACE Labs 12/03/22 11:47 12/03/22 11:47 Labs: Laboratory Results - last 24 hr 12/04/22 12/04/22 12/04/22 10:59 16:37 20:33 POC Glucose 428 H* 427 H* 402 H* 12/05/22 07:47 POC Glucose 243 H Assessment and Plan (1) Asthma with exacerbation: Status: Acute Plan 62-year-old female with a PMH significant for asthma, hypothyroidism, HTN, HLD, and insulin-dependent diabetes who presents to the ED with?wheezing and SOB x3 days. Pt will be admitted to the hospital on observation for treatment of severe persistent asthma with acute exacerbation. Severe persistent asthma with acute exacerbation--persistent wheeze and doesn't feel good Patient with audible wheezing , home inhalers have provided virtually no relief Overall better Solu-Medrol 30 mg q.bid DuoNebs q4 while awake Monitor in hosp for 1 more day Insulin-dependent Diabetes with hyperglycemia d/t steroid resume home lantus SSI + additional insulin PRN Hypothyroidism Continue levothyroxine Full Code Attending:?Dr. Larsen DVT Prophylaxis: Lovenox Patient will be admitted to observation for treatment of severe persistent asthma with acute exacerbation. Time Spent With Patient Time: Total time managing care of this patient today ____ minutes. Time Spent With Patient Time: Total time managing care of this patient today ____ minutes. Quality Stroke Does the patient have a stroke diagnosis?: No VTE Prior VTE?: No VTE Risk Level:: Medical - moderate - high VTE Device Contraindication: Treatment Not Indicated VTE Drug Contraindication: N/A - Med Ordered
--- NOTE | 2022-12-05 10:33 | MHC.CM.PN ---
CM ATTEMPTED TO CONTACT [facility] TO ASSIST IN MEETING WITH THIS PT CM CALLED [phone] X [phone] (1020 AND 1030) CM CALLED [phone] @ 1030 CM WILL TRY CALLING AGAIN AT A LATER TIME
[2022-12-05 11:20] LABS: Glucose, Whole Blood 261 mg/dL (60-115)
[2022-12-05] MEDS: methylPREDNISolone Sod Succ 40 MG/ML VIAL 30 MG IVPUSH ×2 (11:29→20:34)
--- NOTE | 2022-12-05 14:53 | MHC.CM.PN ---
CM MET WITH PT WITH THE ASSISTANCE OF [facility] PT REPORTS SHE LIVES WITH HER AND DAUGHTER AND IS INDEPENDENT WITH SELF CARE SHE USES NO DME AND HAS NO SERVICES SHE DECLINES TO COMPLETE A HCP SHE SAYS SHE IS COVID [place] PCP: [facility] NOTICE DELIVERED CURRENT DC PLAN IS HOME WITH NO SERVICES FAMILY TO TRANSPORT
[2022-12-05 16:53] LABS: Glucose, Whole Blood 321 mg/dL (60-115)
[2022-12-05] MEDS: Enoxaparin Sodium 40 MG/0.4 ML SYRINGE SUBCUT (17:08)
[2022-12-05 20:07] LABS: Glucose, Whole Blood 427 mg/dL (60-115)
[2022-12-05] MEDS: Insulin Glargine,Hum.rec.anlog 100 UNIT/ML 10 ML VIAL 45 UNIT SUBCUT (20:34)
[2022-12-06 03:30] VITALS: BP 149/65; PULSE 89; RESP 18; TEMP 36.3; O2SAT 94
[2022-12-06 04:02] VITALS: PULSE 89; RESP 18
[2022-12-06] MEDS: Levothyroxine Sodium 175 MCG TABLET PO (06:09)
[2022-12-06 07:05] VITALS: BP 132/62; PULSE 85; RESP 18; TEMP 36.1; O2SAT 92
[2022-12-06 07:27] LABS: Glucose, Whole Blood 349 mg/dL (60-115)
[2022-12-06] MEDS: Insulin Lispro 100 UNIT/ML 3 ML VIAL SUBCUT ×7 (08:16→21:03)
[2022-12-06] MEDS: 0.9 % Sodium Chloride Flush 3 ML SYRINGE IVFLUSH ×2 (08:16→16:57)
[2022-12-06] MEDS: methylPREDNISolone Sod Succ 40 MG/ML VIAL 30 MG IVPUSH ×2 (10:28→20:59)
[2022-12-06 11:15] LABS: Glucose, Whole Blood 265 mg/dL (60-115)
--- NOTE | 2022-12-06 12:13 | P.PNIM_ITS ---
Subjective Subjective Date of Service: 12/06/22 Interval History: f/u on asthma exacerbation feels better but has diffuse wheeze Physical Exam Vital Signs: Vital Signs: Last Vital Signs Temp 96.9 F 12/06/22 07:05 Pulse 85 12/06/22 07:05 Resp 18 12/06/22 07:05 BP 132/62 12/06/22 07:05 Pulse Ox 92 12/06/22 07:05 O2 Del Method 12/06/22 07:05 BMI result Body Mass Index 34.1 Const: Other: General: AO X 3, no acute distress Resp: diffuse insp/exp wheezes, some wob CVS: S1,S2,RRR GI: +BS, NT, no distention Skin: No rash Neuro: motor grossly intact Psych: appropriate affect Objective Data Active Medications Acetaminophen (Acetaminophen 325 Mg Tablet) 650 mg PO Q6H PRN PRN Reason: Pain, Mild (Pain Scale 1-3) Last Admin: 12/05/22 04:13 Dose: 650 mg Documented By: JUAN Albuterol Sulfate 2.5 mg/ (Ipratropium [place] 0.5 mg) 0 mg INHALE RQ4H WHILE AWAKE [facility] Last Admin: 12/06/22 07:51 Dose: Not Given Documented By: GENARO Non-Admin Reason: Patient Asleep Albuterol Sulfate 2.5 mg/ (Ipratropium [place] 0.5 mg) 0 mg INHALE Q4H PRN PRN Reason: Wheezing Last Admin: 12/06/22 04:01 Dose: 1 each Documented By: TADEO Docusate Sodium (Docusate Sodium 100 Mg Capsule) 100 mg PO DAILY PRN PRN Reason: Constipation Enoxaparin Sodium (Enoxaparin Sodium 40 Mg/0.4 Ml Syringe) 40 mg SUBCUT Q24H [facility] Last Admin: 12/05/22 17:08 Dose: 40 mg Documented By: GRACE Glucose (Glucose Gel 15 Gm Gel..Gram.) 15 gm PO Q15M PRN; Protocol PRN Reason: per Hypoglycemia Standing Ord. Dextrose (D10) 250 mls @ 750 mls/hr IV Q15M PRN; Protocol PRN Reason: per Hypoglycemia Standing Ord. Insulin Glargine (Insulin Glargine,Hum.Rec.Anlog 100 Unit/Ml 10 Ml Vial) 45 unit SUBCUT BEDTIME [facility] Last Admin: 12/05/22 20:34 Dose: 45 unit Documented By: GEORGE Insulin Human Lispro (Insulin Lispro 100 Unit/Ml 3 Ml Vial) 0 unit SUBCUT QIDACHS [facility]; Protocol Last Admin: 12/06/22 11:54 Dose: 6 unit Documented By: VAUGHN Insulin Human Lispro (Insulin Lispro 100 Unit/Ml 3 Ml Vial) 5 unit SUBCUT QIDACHS [facility] Last Admin: 12/06/22 11:54 Dose: 5 unit Documented By: VAUGHN Levothyroxine Sodium (Levothyroxine Sodium 175 Mcg Tablet) 175 mcg PO DAILY@0600 [facility] Last Admin: 12/06/22 06:09 Dose: 175 mcg Documented By: GEORGE Methylprednisolone Sodium Succinate (Methylprednisolone Sod Succ 40 Mg/Ml Vial) 30 mg IVPUSH Q12H [facility] Last Admin: 12/06/22 10:28 Dose: 30 mg Documented By: VAUGHN Ondansetron HCl (Ondansetron Hcl 4 Mg/2 Ml Vial) 4 mg IVPUSH Q8H PRN PRN Reason: Nausea and Vomiting Pharmacy Consult (Consult Rx Perform Med Rec) 1 each MISCELLANE ONCE PRN PRN Reason: Consult order Sodium Chloride (0.9 % Sodium Chloride Flush 3 Ml Syringe) 3 ml IVFLUSH QSHIFT [facility] Last Admin: 12/06/22 08:16 Dose: 3 ml Documented By: VAUGHN Labs 12/03/22 11:47 12/03/22 11:47 Labs: Laboratory Results - last 24 hr 12/05/22 12/05/22 12/06/22 16:41 20:01 07:04 POC Glucose 321 H 427 H* 349 H 12/06/22 11:03 POC Glucose 265 H Assessment and Plan (1) Asthma with exacerbation: Status: Acute Plan 62-year-old female with a PMH significant for asthma, hypothyroidism, HTN, HLD, and insulin-dependent diabetes who presents to the ED with?wheezing and SOB x3 days. Pt will be admitted to the hospital on observation for treatment of severe persistent asthma with acute exacerbation. Severe persistent asthma with acute exacerbation--persistent wheeze and doesn't feel good Patient with audible wheezing , home inhalers have provided virtually no relief Overall better Solu-Medrol 30 mg q.bid DuoNebs q4 while awake Monitor in hosp for 1 more day Insulin-dependent Diabetes with hyperglycemia d/t steroid resume home lantus SSI + additional insulin PRN Hypothyroidism Continue levothyroxine Full Code Attending:?Dr. Larsen DVT Prophylaxis: Lovenox Patient will be admitted to observation for treatment of severe persistent asthma with acute exacerbation. Time Spent With Patient Time: Total time managing care of this patient today ____ minutes. Time Spent With Patient Time: Total time managing care of this patient today ____ minutes. Quality Stroke Does the patient have a stroke diagnosis?: No VTE Prior VTE?: No VTE Risk Level:: Medical - moderate - high VTE Device Contraindication: Treatment Not Indicated VTE Drug Contraindication: N/A - Med Ordered
--- NOTE | 2022-12-06 14:34 | MHC.CM.PN ---
PER MD ROUNDS, PT NOT CLEARED TO DC DCP REMAINS HOME NO SERVICES VIA FAMILY TRANSPORT
[2022-12-06 16:00] VITALS: BP 144/73; PULSE 104; RESP 19; TEMP 36.6; O2SAT 92
[2022-12-06 16:17] LABS: Glucose, Whole Blood 346 mg/dL (60-115)
[2022-12-06] MEDS: Enoxaparin Sodium 40 MG/0.4 ML SYRINGE SUBCUT (16:56)
[2022-12-06 19:49] VITALS: PULSE 100; RESP 18; O2SAT 94
[2022-12-06 20:00] VITALS: BP 134/66; PULSE 107; RESP 18; TEMP 36.2; O2SAT 94
[2022-12-06 20:29] LABS: Glucose, Whole Blood 422 mg/dL (60-115)
[2022-12-06] MEDS: Insulin Glargine,Hum.rec.anlog 100 UNIT/ML 10 ML VIAL 45 UNIT SUBCUT (20:59)
[2022-12-07] VITALS (7 sets, daily range): BP systolic 139–159; BP diastolic 61–80; PULSE 82–100; RESP 14–20; TEMP 36.3–36.8; O2SAT 92–96
[2022-12-07] MEDS: 0.9 % Sodium Chloride Flush 3 ML SYRINGE IVFLUSH ×2 (03:28→07:52)
[2022-12-07] MEDS: Levothyroxine Sodium 175 MCG TABLET PO (06:03)
[2022-12-07 07:42] LABS: Glucose, Whole Blood 334 mg/dL (60-115)
[2022-12-07] MEDS: Insulin Lispro 100 UNIT/ML 3 ML VIAL SUBCUT ×9 (07:51→21:27)
[2022-12-07] MEDS: methylPREDNISolone Sod Succ 40 MG/ML VIAL 30 MG IVPUSH ×2 (09:44→21:29)
[2022-12-07 11:32] LABS: Glucose, Whole Blood 368 mg/dL (60-115)
[2022-12-07] MEDS: Throat Lozenge, Medicated LOZENGE 1 LOZENGE MUCOUS MEM ×2 (12:26→19:11)
[2022-12-07 12:59] LABS: IDNOW Serial# 6674DD1D; Strep A Nucleic Acid Negative (Negative)
--- NOTE | 2022-12-07 13:25 | MHC.CM.PN ---
pt dcd home no skilled servcies ordered by
[2022-12-07 13:29] LABS: Glucose, Whole Blood 345 mg/dL (60-115)
[2022-12-07 16:15] LABS: Glucose, Whole Blood 338 mg/dL (60-115)
[2022-12-07] MEDS: Acetaminophen 325 MG TABLET 650 MG PO (16:55)
[2022-12-07] MEDS: Enoxaparin Sodium 40 MG/0.4 ML SYRINGE SUBCUT (16:55)
[2022-12-07 21:20] LABS: Glucose, Whole Blood 273 mg/dL (60-115)
[2022-12-07] MEDS: Insulin Glargine,Hum.rec.anlog 100 UNIT/ML 10 ML VIAL 45 UNIT SUBCUT (21:26)
[2022-12-08 03:44] VITALS: BP 144/73; PULSE 76; RESP 17; TEMP 36.4; O2SAT 94
[2022-12-08] MEDS: Levothyroxine Sodium 175 MCG TABLET PO (05:44)
[2022-12-08 07:13] VITALS: BP 147/74; PULSE 86; RESP 18; TEMP 36.1; O2SAT 92
[2022-12-08 07:24] LABS: Glucose, Whole Blood 295 mg/dL (60-115)
[2022-12-08] MEDS: Insulin Lispro 100 UNIT/ML 3 ML VIAL SUBCUT ×4 (07:29→11:56)
[2022-12-08] MEDS: 0.9 % Sodium Chloride Flush 3 ML SYRINGE IVFLUSH (07:29)
[2022-12-08 07:38] VITALS: PULSE 85; RESP 18; O2SAT 93
[2022-12-08] MEDS: Insulin Glargine,Hum.rec.anlog 100 UNIT/ML 10 ML VIAL 10 UNIT SUBCUT (10:15)
[2022-12-08] MEDS: methylPREDNISolone Sod Succ 40 MG/ML VIAL 30 MG IVPUSH (10:18)
[2022-12-08 10:55] VITALS: PULSE 95; RESP 18; O2SAT 97
[2022-12-08 11:14] LABS: Glucose, Whole Blood 351 mg/dL (60-115)
--- NOTE | 2022-12-08 11:40 | PM.DS ---
DS: Providers Provider Date of Service: 12/08/22 Date of admission: 12/03/22 16:11 Date of discharge: 12/08/22 Primary care physician: MARY ANN Baptiste DS: Diagnosis Discharge Diagnosis (1) Asthma with exacerbation: Status: Acute DS: Summary Hospital Course Hospital Course: Chief Complaint: SOB, wheezing Pt is a 62-year-old female with a PMH significant for asthma, hypothyroidism, HTN, HLD, and insulin-dependent diabetes who presents to the ED with?wheezing and SOB x3 days. Cough occasionally productive of yellowish sputum. Pt states she has been taking her home inhalers with little to no improvement.? Has been experiencing chest tightness with inspiration.? Patient also states that she has been admitted to the hospital before for acute asthma exacerbations.? Patient denies fever, chills, nausea, vomiting, diarrhea.? No abdominal pain. In the ED patient was afebrile, tachycardic up to 122, tachypneic up to 22, and satting at 90% O2 on RA. Labs were significant for random glucose of 324, otherwise unremarkable.? Patient tested negative for influenza types A and B, RSV, COVID. CXR was clear for acute cardiopulmonary disease. EKG demonstrated sinus tachycardia with no evidence of ST elevations or depressions. Pt was treated with DuoNebs, IVF, and Solu-Medrol. Pt will be admitted to the hospital on observation for severe persistent asthma with acute exacerbation. Hospital course: Patient was admitted with severe persistent asthma with acute exacerbation with audible wheezes, with no relief with home inhalers. Upon admission, she was treated with IV steroid, bronchodilators by Nebulizer and over the course of hospitalization has improved and will be transitioned to oral steroid and to continue home inahlers Insulin-dependent Diabetes with hyperglycemia d/t steroid, steroid reduced and will take for 2 more days for total of 5, resume home diabetes meds. we will adjust lantus. Hypothyroidism Continue levothyroxine. Plan: Please complete the course of steroids. Take Lantus as adjusted, monitor fingersticks at home, further management outpatient as per PCP. Above management discussed the patient in detail and she understand and in agreement with the above plan, time spent 50 minute. Time Spent with Patient Time attestation: Total time managing care of this patient today ____ minutes. Discharge coordination time: Greater than 30 minutes Quality: Safe Use of Opioids Does Pt have an Active Cancer Diagnosis on the Problem List?: No Quality: Stroke Does the patient have a stroke diagnosis?: No Physical Exam Vital Signs: Vital Signs: Last Vital Signs Temp 96.9 F 12/08/22 07:13 Pulse 95 12/08/22 10:55 Resp 18 12/08/22 10:55 BP 147/74 H 12/08/22 07:13 Pulse Ox 92 12/08/22 07:13 O2 Del Method 12/08/22 07:13 BMI result Body Mass Index 34.1 General: AO X 3, no acute distress Resp:? diffuse insp/exp wheezes, some wob CVS: S1,S2,RRR GI: +BS, NT, no distention Skin: No rash Neuro:? motor grossly intact Psych: appropriate affect DS: Data Data Completed and Pending Labs on day of discharge: Laboratory Results - last 24 hr 12/07/22 12/07/22 12/07/22 12:20 13:26 16:10 POC Glucose 345 H 338 H S. pyogenes GrpA LEI Negative 12/07/22 12/08/22 12/08/22 21:11 07:12 11:05 POC Glucose 273 H 295 H 351 H* S. pyogenes GrpA LEI Imaging Chest x-ray: Radiologist's impression: ITS Impressions Chest X-Ray 12/03/22 12:04 IMPRESSION: No acute pulmonary pathology. Discharge Plan Discharge Anticipated Discharge Date/Time: 12/07/22 11:03 Patient Disposition: Home, Self-Care Discharge Diagnosis: asthma exacerbation Referrals: Indigo Dumont FNP-C [Primary Care Provider] - 1 Week Discharge Medications: New albuterol sulfate 90 mcg/actuation HFA aerosol inhaler 2 inh inhalation Q6-8H PRN (Reason: shortness of breath or wheezing) Qty: 18 1RF prednisone 20 mg tablet 20 mg PO DAILY Qty: 3 0RF Continued levothyroxine 175 mcg tablet 1 tab PO DAILY@0600 insulin glargine [Lantus Solostar U-100 Insulin] 100 unit/mL (3 mL) insulin pen 45 unit subcut BEDTIME Discharge Orders: Discharge Order (Routine); Ordered 12/08/22 Ordered By: Kam Mlapah Diet: Diabetic diet Activity on Discharge: As tolerated Stand Alone Forms: Patient Portal Discharge page Care Plan Goals: recovery from shortness of breath Health Concerns: asthma diabetes with hyperglycemia Plan of Treatment: as above Assessment: as above
== END 2022-12-08 13:33 | disposition home or self-care (01) ==
LOC: HO.ED 13:01 → HO.EDOVER 16:19 → HO.S3 16:33
PROVIDERS: Internal Medicine; Physician Assistant; Admitting Provider Student in an Organized Health Care Education/Training Program; Emergency Provider Emergency Medicine; PCP Nurse Practitioner Family; Visit Provider Internal Medicine
DX: J45.901 Unspecified asthma with (acute) exacerbation (principal); R06.02 Shortness of breath; R00.0 Tachycardia, unspecified; Z20.822 Contact with and (suspected) exposure to COVID-19; Z20.828 Contact with and (suspected) exposure to other viral communicable diseases; E11.9 Type 2 diabetes mellitus without complications; E66.9 Obesity, unspecified; Z68.34 Body mass index [BMI] 34.0-34.9, adult; Z79.4 Long term (current) use of insulin; Z79.899 Other long term (current) drug therapy
CPT/HCPCS: 0241U; 36415; 71045; 80053; 82947; 83880; 85025; 87651; 93005; 94640; 96361; 96372; 96374; 96376; 99221; 99285; J1650; J2920; J2930

== ENCOUNTER 2023-02-04 16:48 | Emergency (ER) | payer OTHER, SELFPAY ==
--- NOTE | ~2023-02-04 | XR_ITS ---
EXAMINATION: XR CHEST CLINICAL INFORMATION: Dyspnea COMPARISON: 12/03/2022 TECHNIQUE: Frontal view of the chest was obtained. FINDINGS: The lungs are clear with no focal consolidation. No evidence of pneumothorax, pulmonary edema, or pleural effusions. The cardiomediastinal silhouette is unremarkable. No acute osseous findings. XR/XR chest 1V IMPRESSION: No acute cardiopulmonary findings.
[2023-02-04 16:53] VITALS: BP 141/80; BP 149/74; PULSE 106; PULSE 110; RESP 22; TEMP 36.9; O2SAT 100; O2SAT 95; BMI 46.4
[2023-02-04 17:42] LABS: Hematocrit 37.7 % (37.0-47.0); Hemoglobin 12.9 g/dl (12.0-16.0); Mean Corpuscular HGB Conc 34.2 g/dl (31.0-35.0); Mean Corpuscular Volume 84.7 fL (80.0-98.0); Mean Platelet Volume 10.5 fL (9.4-12.3); Platelet Count 270 X10*3/uL (160-400); Red Blood Count 4.45 X10*6/uL (4.20-5.50); Red Cell Distribution Width 12.6 % (11.0-16.0); White Blood Count 4.3 X10*3/uL (4.8-10.8)
[2023-02-04 18:04] LABS: Anion Gap 14 (12-20); Blood Urea Nitrogen 10 mg/dL (9-16); Calcium 9.1 mg/dL (8.4-10.2); Carbon Dioxide 23 mmol/L (22-29); Chloride 104 mmol/L (96-108); Estimated Glomerular Filt Rate > 60; Glucose Random 373 mg/dL (60-115); Potassium 4.1 mmol/L (3.3-5.1); Sodium 137 mmol/L (135-145); Troponin-I High Sensitivity < 2.7 ng/L (<3.5-17.0)
--- NOTE | 2023-02-04 18:40 | ED_ITS ---
HPI - SOB/Dyspnea General Chief Complaint: Dyspnea Stated Complaint: sob from exposure bleach Time Seen by Provider: 02/04/23 18:32 Source: patient Mode of arrival: EMS Limitations: no limitations History of Present Illness HPI Narrative: Patient comes to the emergency room complaining of an asthma exacerbation. Malissa alcazar states that 2 days ago she was cleaning the bathroom with bleach, since then she has been having asthma/wheezing exacerbation but today got worse. Patient called 911, EMS gave her Solu-Cortef and a DuoNeb. Patient still feeling tight Related Data Home Medications Medication Instructions Recorded Confirmed insulin glargine 100 unit/mL (3 45 unit subcut BEDTIME 12/03/22 12/03/22 mL) subcutaneous pen (Lantus Solostar U-100 Insulin) levothyroxine 175 mcg tablet 1 tab PO DAILY@0600 12/03/22 12/03/22 Previous Rx's Medication Instructions Recorded albuterol sulfate 90 mcg/actuation 2 inh inhalation Q6-8H PRN 12/05/22 aerosol inhaler shortness of breath or wheezing #18 grams prednisone 20 mg tablet 20 mg PO DAILY #3 tabs 12/05/22 albuterol sulfate 90 mcg/actuation 2 puff inhalation Q4-6H PRN 02/04/23 aerosol inhaler shortness of breath or wheezing #8.5 grams prednisone 50 mg tablet 50 mg PO DAILY #5 tabs 02/04/23 Allergies Allergy/AdvReac Type Severity Reaction Status Date / Time No Known Allergies Allergy Verified 12/03/22 10:52 [No Known Allergies*] Review of Systems Review of Systems: Constitutional : No Weight loss, No Fever, No Chills, No Night Sweats, No Fatigue, No Malaise ENT/Mouth : No Hearing loss, No Ear Pain, No Nasal Congestion, No Sinus Pain, No Hoarseness, No sore throat, No Rhinorrhea, No Swallowing Difficulty Eyes: No Eye Pain, No Swelling, No Redness, No Foreign Body, No Discharge, No Vision Changes Cardiovascular : No Chest Pain, No SOB, No Dyspnea on Exertion, No Orthopnea, No Edema, No Palpitations Respiratory : Complaining of cough, wheezing, No Smoke Exposure, No Dyspnea Gastrointestinal : No Nausea, No Vomiting, No Diarrhea, No Constipation, No abdominal Pain, No Hematochezia, No Melena Genitourinary : no irregular bleeding, No Dysuria, No Urinary Frequency, No Hematuria, No Urinary Incontinence, No Urgency, No Flank Pain, No Urinary Flow Changes, No Hesitancy Musculoskeletal : No joint pain, No Myalgias, No Joint Swelling Skin : No Skin Lesions, No rash Neuro : No Weakness, No Numbness, No Paresthesias, No Loss of Consciousness, No Dizziness, No Headache Psych : No Anxiety/Panic, No Depression, No SI/HI/AH/VH, No Social Issues, Heme/Lymph: No Bruising, No Bleeding,No Lymphadenopathy Endocrine : No Polyuria, No Polydipsia, No Temperature Intolerance [facility] Past Medical History Medical History Asthma Diabetes type 2, controlled Hypothyroid Social History Social History Household Members: Family Housing: House Alcohol intake: never Patient Tobacco Use Status: Former Tobacco user Smoked in Last 30 Days: No Use of substances other than those prescribed or required for medical reasons: No Advance Directives: No Advance Directives Information Provided: Yes Patient : No service: No Current occupational status: unemployed Physical Exam Vital Signs: Vital Signs: Last Vital Signs Temp 98.0 F 02/04/23 21:14 Pulse 116 H 02/04/23 21:14 Resp 18 02/04/23 21:14 BP 134/49 L 02/04/23 21:14 Pulse Ox 94 02/04/23 21:14 O2 Del Method Room Air 02/04/23 21:14 BMI result Body Mass Index 46.4 Const: Other: Appearance: Alert. Oriented X3. No acute distress. Eyes: Pupils equal, round and reactive to light. ENT: Pharynx normal. Neck: Normal inspection. Neck supple. No lymph nodes noted. No crepitus CVS: Normal heart rate and rhythm. Pulses normal. Normal S1 and S2 Respiratory: No respiratory distress. Speaking in full sentences, wheezing bilaterally Abdomen: Soft and nontender. No rigidity. No distention. Skin: Skin warm and dry. Normal skin color. Normal skin turgor. Extremities: No lower extremity edema. No Lacerations. No Rash Neuro: Oriented X 3. No motor deficit. No sensory deficit. Moving all extremities. No slurred speech. CN 2 through 12 grossly intact Psych: calm, cooperative, normal affect Course Course Course Narrative: -patient getting supplemental this time, albuterol nebulization. -patient also getting IV fluids and 5 units of insulin, patient's glucose is 373 Medications Administered Discontinued Medications Generic Name Dose Route Start Last Admin Trade Name Jeff PRN Reason Stop Dose Admin Albuterol Sulfate 10 mg 02/04/23 18:39 02/04/23 18:55 Albuterol Sulfate (0.083%) 2.5 Mg/3 Ml Vial.Neb INHALE 02/04/23 18:40 10 mg ONCE ONE Administration Albuterol Sulfate 10 mg 02/04/23 20:13 02/04/23 20:29 Albuterol Sulfate (0.083%) 2.5 Mg/3 Ml Vial.Neb INHALE 02/04/23 20:14 10 mg ONCE ONE Administration Sodium Chloride 1,000 mls @ 999 mls/hr 02/04/23 18:46 02/04/23 19:03 Ns IVCONT 02/04/23 19:46 999 mls/hr .Q1H1M ONE Administration Insulin Human Regular 5 unit 02/04/23 18:46 02/04/23 19:04 Insulin Regular, Human 100 Unit/Ml 3 Ml Vial IVPUSH 02/04/23 18:47 5 unit ONCE ONE Administration Methylprednisolone Sodium Succinate 125 mg 02/04/23 18:39 02/04/23 19:03 Methylprednisolone Sod Succ 125 Mg/2 Ml Vial IVPUSH 02/04/23 18:40 125 mg ONCE ONE Administration Medical Decision Making Medical Decision Making MDM Narrative: -patient speaking in full sentences, patient on the phone with her family, breathing normal. -patient was ambulated around the emergency room, oxygen saturation 96%. Patient states that she feels short of breath when she walks, but her oxygen does not drop. I discussed the patient with Dr. Aly for possible admission. -patient barely has any wheezing, oxygen saturation 96% constantly. Speaking in full sentences Lab Data 02/04/23 17:32 02/04/23 17:32 Labs: Lab Results 02/04/23 02/04/23 02/04/23 Range/Units 17:32 17:32 17:32 WBC 4.3 L (4.8-10.8) X10*3/uL RBC 4.45 (4.20-5.50) X10*6/uL Hgb 12.9 (12.0-16.0) g/dl Hct 37.7 (37.0-47.0) % MCV 84.7 (80.0-98.0) fL MCH 29.0 (27.0-33.0) pg MCHC 34.2 (31.0-35.0) g/dl RDW 12.6 (11.0-16.0) % Plt Count 270 (160-400) X10*3/uL MPV 10.5 (9.4-12.3) fL Absolute Nucleated RBC 0.000 (0.0-0.012) X10*3/uL Nucleated RBC % (auto) 0.0 (0.0-0.2) /100WBC Sodium 137 (135-145) mmol/L Potassium 4.1 (3.3-5.1) mmol/L Chloride 104 (96-108) mmol/L Carbon Dioxide 23 (22-29) mmol/L Anion Gap 14 (12-20) BUN 10 (9-16) mg/dL Creatinine 0.76 (0.5-1.4) mg/dL Estim Creat Clear Calc 83.0 Estimated GFR > 60 Random Glucose 373 H* (60-115) mg/dL Calcium 9.1 (8.4-10.2) mg/dL Troponin I High Sens < 2.7 (<3.5-17.0) ng/L Discharge Plan Discharge Clinical Impression: Asthma Patient Disposition: Home, Self-Care Instructions: Wheezing (ED) Additional Instructions: Please follow-up with your primary care physician tomorrow. If you have any worsening or new symptoms, please return to the emergency room or call 911 Prescriptions: New albuterol sulfate 90 mcg/actuation HFA aerosol inhaler 2 puff inhalation Q4-6H PRN (Reason: shortness of breath or wheezing) Qty: 8.5 1RF prednisone 50 mg tablet 50 mg PO DAILY Qty: 5 0RF No Action levothyroxine 175 mcg tablet 1 tab PO DAILY@0600 insulin glargine [Lantus Solostar U-100 Insulin] 100 unit/mL (3 mL) insulin pen 45 unit subcut BEDTIME albuterol sulfate 90 mcg/actuation HFA aerosol inhaler 2 inh inhalation Q6-8H PRN (Reason: shortness of breath or wheezing) Qty: 18 1RF prednisone 20 mg tablet 20 mg PO DAILY Qty: 3 0RF
[2023-02-04 18:55] VITALS: PULSE 102; RESP 18; O2SAT 96
[2023-02-04] MEDS: Albuterol Sulfate (0.083%) 2.5 MG/3 ML VIAL.NEB 10 MG INHALE ×2 (18:55→20:29)
[2023-02-04] MEDS: methylPREDNISolone Sod Succ 125 MG/2 ML VIAL IVPUSH (19:03)
[2023-02-04] MEDS: 0.9 % Sodium Chloride 1,000 ML 999 ML IVCONT (19:03)
[2023-02-04] MEDS: Insulin Regular, Human 100 UNIT/ML 3 ML VIAL IVPUSH (19:04)
[2023-02-04 19:10] VITALS: BP 128/47; PULSE 119; RESP 16; TEMP 36.8; O2SAT 95
--- NOTE | 2023-02-04 19:13 | PC.NURSE ---
Patient is alert and oriented x3, [place] speaking female. Patient reports chest tightness improved since receiving nebulizer treatment. O2 Sat 95-97% RA. patient medicated per MAR with Solu medrol and insulin IV push, bolus of 1 L NS infusing. Call dan placed within pateint's reach.
[2023-02-04 21:14] VITALS: BP 134/49; PULSE 116; RESP 18; TEMP 36.7; O2SAT 94
[2023-02-04 21:51] LABS: Glucose, Whole Blood 407 mg/dL (60-115)
--- NOTE | 2023-02-04 22:00 | PC.NURSE ---
POC 407. Dr. Banks notified, no new orders at this time. Patient just consumed 1 can of regular glenda hailee. Patient denies s/s of hyperglycemia. Per Dr. Banks patient may be discharged home.
== END 2023-02-04 22:37 | disposition home or self-care (01) ==
PROVIDERS: Emergency Provider Emergency Medicine
DX: J45.909 Unspecified asthma, uncomplicated (principal); R06.02 Shortness of breath; Z87.891 Personal history of nicotine dependence
CPT/HCPCS: 36415; 71045; 80048; 82947; 84484; 85027; 94640; 96361; 96374; 96375; 99284; 99285; J2930

== ENCOUNTER 2024-05-22 14:05 | Emergency (ER) | payer OTHER, SELFPAY ==
[2024-05-22 14:12] VITALS: BP 189/74; PULSE 104; RESP 19; TEMP 36.5; O2SAT 98; BMI 50.7
--- NOTE | 2024-05-22 14:15 | ED.GENADULT ---
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 She reports that she has had a rash on and off for one month. She saw her doctor who prescribed her Cefuroxime, Prednisone, and Hydroxyzine. She reports the rash is worst on the inside of her right elbow, but is also on her chest, left ear and head. Denies any fevers, chills pain The rash is very itchy. Denies any other new medications prior to the onset of her rash. Denies any sick contacts or recent travel Related Data Home Medications ?Medication ?Instructions ?Recorded ?Confirmed insulin glargine 100 unit/mL (3 45 unit subcut BEDTIME 12/03/22 12/03/22 mL) subcutaneous pen (Lantus Solostar U-100 Insulin) levothyroxine 175 mcg tablet 1 tab PO DAILY@0600 12/03/22 12/03/22 Previous Rx's ?Medication ?Instructions ?Recorded albuterol sulfate 90 mcg/actuation 2 inh inhalation Q6-8H PRN 12/05/22 aerosol inhaler shortness of breath or wheezing #18 grams prednisone 20 mg tablet 20 mg PO DAILY #3 tabs 12/05/22 albuterol sulfate 90 mcg/actuation 2 puff inhalation Q4-6H PRN 02/04/23 aerosol inhaler shortness of breath or wheezing #8.5 grams prednisone 50 mg tablet 50 mg PO DAILY #5 tabs 02/04/23 triamcinolone acetonide 0.1 % 1 appl topical BID 1 week #30 grams 05/22/24 topical ointment Allergies Allergy/AdvReac Type Severity Reaction Status Date / Time No Known Allergies Allergy Verified 05/22/24 14:14 [No Known Allergies*] Review of Systems Constitutional: Constitutional: Denies body ache(s), Denies chills and Denies fever(s) Eyes: Eyes: Denies blurry vision ENT: Denies vertigo Cardiovascular: Cardiovascular: Denies chest pain and Denies dyspnea Respiratory: Respiratory: Denies cough and Denies dyspnea Integumentary/Breasts: Skin/Breast: Reports pruritus and Reports rash Neurologic: Denies vertigo PMFSH Past Medical History Medical History Asthma Diabetes type 2, controlled Hypothyroid Social History Social History Household Members: Family Housing: House Alcohol intake: never Patient Tobacco Use Status: Former Tobacco user Advance Directives: No service: No Current occupational status: unemployed Physical Exam ED Vital Signs: Vital Signs - 24 hr 05/22/24 14:12 Temperature 97.7 F Pulse Rate 104 H Respiratory Rate 19 Blood Pressure 189/74 H Pulse Oximetry 98 Oxygen Delivery Method Room Air BMI result Body Mass Index 50.7 Const General: healthy appearing, comfortable, no acute distress, alert and awake Nutritional Appearance: well nourished Orientation/consciousness: patient oriented x3 HENMT Head: Yes normocephalic and Yes atraumatic Eyes Eyelids: Yes eyelids normal Conjunctivae: conjunctivae normal Sclerae: sclerae normal Corneas: corneas normal Pupils: Equal, round and reactive pupils present EOM: EOMs intact bilaterally Neck Neck: Yes full ROM Resp Effort & Inspection: normal respiratory effort, able to speak in complete sentences and not labored Skin Other: Patient has an erythematous rash to the flexor surface of the right elbow. There is overlying whitish scaling aspect to the rash. There is a similar, scattered rash to the torso, chest. She has a small area to the left outer ear. No surrounding beefy red erythema, no skin sloughing. General skin exam: elasticity normal Neuro General: patient oriented x3 Cranial nerves: Yes Equal, round and reactive pupils present and Yes Bilaterally intact EOM present Cognition (Neuro): normal cognition Extrem Other: Moving all extremities well without any obvious deformities Medical Decision Making Medical Decision Making MDM Narrative: 63-year-old female presents for evaluation of a rash. Her rash is most consistent with eczema. I encouraged the patient to discontinue the cefuroxime as I do not feel that will help her symptoms. I will prescribe triamcinolone ointment in addition to the prednisone and hydroxyzine for symptomatic treatment. She will follow back up with the PCP Differential Diagnosis Differential Diagnoses: The differential diagnosis associated with the presentation includes Eczema Dermatitis Psoriasis Candidiasis Discharge Plan Discharge Clinical Impression: Eczema Patient Disposition: Home, Self-Care Instructions: Dermatitis (ED) Additional Instructions: You may continue the prednisone, hydroxyzine. Use triamcinolone twice daily for 1 week Apply to affected area Your rash is consistent with eczema You may stop taking the cefuroxime, as this will not help your rash Follow-up with your primary doctor Prescriptions: New triamcinolone acetonide 0.1 % ointment 1 appl topical BID 7 Days Qty: 30 0RF No Action levothyroxine 175 mcg tablet 1 tab PO DAILY@0600 insulin glargine [Lantus Solostar U-100 Insulin] 100 unit/mL (3 mL) insulin pen 45 unit subcut BEDTIME albuterol sulfate 90 mcg/actuation HFA aerosol inhaler 2 inh inhalation Q6-8H PRN (Reason: shortness of breath or wheezing) Qty: 18 1RF prednisone 20 mg tablet 20 mg PO DAILY Qty: 3 0RF albuterol sulfate 90 mcg/actuation HFA aerosol inhaler 2 puff inhalation Q4-6H PRN (Reason: shortness of breath or wheezing) Qty: 8.5 1RF prednisone 50 mg tablet 50 mg PO DAILY Qty: 5 0RF Print Language: Danish
[2024-05-22 14:31] VITALS: BP 189/74; PULSE 104; RESP 19; TEMP 36.5; O2SAT 98
== END 2024-05-22 14:32 | disposition home or self-care (01) ==
PROVIDERS: Emergency Provider Emergency Medicine; PCP Nurse Practitioner Family
DX: L30.9 Dermatitis, unspecified (principal); L29.9 Pruritus, unspecified; E11.9 Type 2 diabetes mellitus without complications; Z79.4 Long term (current) use of insulin; Z79.899 Other long term (current) drug therapy
CPT/HCPCS: 99282; 99283

== ENCOUNTER 2024-12-03 09:59 | Emergency (ER) | payer OTHER, SELFPAY ==
--- NOTE | 2024-12-03 | ECG_ITS ---
Test Reason : CHEST PAIN Blood Pressure : */* mmHG Vent. Rate : 92 BPM Atrial Rate : 92 BPM P-R Int : 152 ms QRS Dur : 76 ms QT Int : 352 ms P-R-T Axes : 54 24 -7 degrees QTcB Int : 435 ms Normal sinus rhythm Nonspecific T wave abnormality Abnormal ECG When compared with ECG of 03-Dec-2022 13:24, Nonspecific T wave abnormality has replaced inverted T waves in Inferior leads Referred By: Generic ED Physician Electronically Signed By: Florentino Rosas
--- NOTE | ~2024-12-03 | XR_ITS ---
EXAMINATION: XR CHEST CLINICAL INFORMATION: pain COMPARISON: February 04, 2023. TECHNIQUE: 2 views of the chest were obtained. FINDINGS: No consolidation, pleural effusion or pneumothorax. Subsegmental atelectasis, right middle lobe. No hyperinflation. Cardiomediastinal silhouette size is normal. Osseous structures are intact. Degenerative changes in the acromioclavicular joints. XR/XR chest 2V IMPRESSION: Subsegmental atelectasis, right middle lobe. Electronically signed by: Jonatan Junior MD 12/03/2024 11:39 AM EDT
--- NOTE | ~2024-12-03 | XR_ITS ---
EXAMINATION: XR SHOULDER 2 OR MORE VIEWS LEFT HISTORY: pain COMPARISON: There are no prior studies available for comparison. FINDINGS: Four views of the left shoulder are submitted. Osseous mineralization is normal. There is no fracture or dislocation. The joint spaces are preserved. The soft tissues are unremarkable. XR/XR shoulder LT min 2V IMPRESSION: Unremarkable examination of the left shoulder. Electronically signed by: Christopher Smalls MD 12/03/2024 12:13 PM EDT
--- NOTE | ~2024-12-03 | XR_ITS ---
EXAMINATION: XR CERVICAL SPINE 2-3 VIEWS HISTORY: pain COMPARISON: There are no prior studies for comparison. FINDINGS: AP, lateral, and open-mouth odontoid views of the cervical spine are submitted. Osseous mineralization is normal. Seven cervical vertebral bodies are identified maintaining normal height and alignment without evidence of fracture or subluxation. There is diffuse moderate degenerative disc disease with disc space narrowing and osteophyte formation. This is most prominent at C3-4. The odontoid and lateral masses of C1 are intact. There is no prevertebral soft tissue swelling. Calcifications in the left neck are likely related to the internal carotid artery. XR/XR cervical spine 3V IMPRESSION: Degenerative changes of the cervical spine as described. Electronically signed by: Christopher Smalls MD 12/03/2024 12:15 PM EDT
[2024-12-03 10:12] VITALS: BP 135/86; BP 147/92; PULSE 87; PULSE 90; RESP 15; TEMP 36.6; O2SAT 97; BMI 31.4
--- NOTE | 2024-12-03 10:41 | ED_ITS ---
HPI - Chest Pain General Chief Complaint: Chest Pain Stated Complaint: L ARM PAIN CHEST PAIN Time Seen by Provider: 12/03/24 10:41 Source: patient, RN notes reviewed and operations trainer Mode of arrival: ambulatory Limitations: language barrier History of Present Illness ED Provider: Neena Baptiste PA-C HPI narrative: This is a 64-year-old [place]-speaking female, with a past medical history of hypothyroidism, asthma, and diabetes, who presents emergency department with concerns for left shoulder pain and chest pain for the last 2 days. Patient reports that 2 days ago she was lying down and rolled over onto her left side, and she immediately felt pain in her left shoulder radiating up into her neck and down her arm. This pain has been constant, worsening with movement and with palpation. Denies history of similar symptoms in the past. Denies any shortness of breath, palpitations, abdominal pain, nausea, vomiting or diarrhea. No other complaints or concerns at this time. MD complaint: other (Shoulder pain radiating into chest.) Prior episodes: No Severity: moderate Relieving factors: rest Exacerbating factors: movement Treatment prior to arrival: none Risk Factors Coronary artery disease risk factors: diabetes Thoracic aortic dissection risk factors: none Related Data On Oral Contraceptives: No Home Medications ?Medication ?Instructions ?Recorded ?Confirmed insulin glargine 100 unit/mL (3 45 unit subcut BEDTIME 12/03/22 12/03/22 mL) subcutaneous pen (Lantus Solostar U-100 Insulin) levothyroxine 175 mcg tablet 1 tab PO DAILY@0600 12/03/22 12/03/22 Previous Rx's ?Medication ?Instructions ?Recorded albuterol sulfate 90 mcg/actuation 2 inh inhalation Q6-8H PRN 12/05/22 aerosol inhaler shortness of breath or wheezing #18 grams prednisone 20 mg tablet 20 mg PO DAILY #3 tabs 12/05/22 albuterol sulfate 90 mcg/actuation 2 puff inhalation Q4-6H PRN 02/04/23 aerosol inhaler shortness of breath or wheezing #8.5 grams prednisone 50 mg tablet 50 mg PO DAILY #5 tabs 02/04/23 triamcinolone acetonide 0.1 % 1 appl topical BID 1 week #30 grams 05/22/24 topical ointment acetaminophen 500 mg tablet 1,000 mg (2 x 500 mg) PO Q8H PRN 12/03/24 (Tylenol Extra Strength) pain #30 tabs ibuprofen 600 mg tablet 600 mg PO Q6H PRN pain #30 tabs 12/03/24 lidocaine 4 % topical patch 1 patch topical DAILY PRN pain #30 12/03/24 (AsperFlex (lidocaine)) ea tramadol 50 mg tablet 50 mg PO BID PRN pain #4 tabs 12/04/24 oxycodone 5 mg tablet 5 mg PO BID PRN pain #5 tabs 12/06/24 Allergies Allergy/AdvReac Type Severity Reaction Status Date / Time No Known Allergies Allergy Verified 12/06/24 01:09 [No Known Allergies*] Review of Systems 2 Review of Systems: Yes all other systems are reviewed and are negative Constitutional: Constitutional: Reports as per [facility] Past Medical History Medical History Diabetes type 2, controlled Asthma Hypothyroid Social History Social History Household Members: Family Housing: House Alcohol intake: never Patient Tobacco Use Status: Former Tobacco user Smoked in Last 30 Days: No Use of substances other than those prescribed or required for medical reasons: No Advance Directives: No Advance Directives Information Provided: Yes Do you have a plan to hurt others: No Plan Patient : No service: No Current occupational status: unemployed Physical Exam 2 Vital Signs: Vital Signs: Last Vital Signs Temp 98.0 F 12/03/24 17:01 Pulse 71 12/03/24 17:01 Resp 14 12/03/24 17:01 BP 118/81 12/03/24 17:01 Pulse Ox 99 12/03/24 17:01 O2 Del Method Room Air 12/03/24 17:01 BMI result Body Mass Index 31.4 Const: General: cooperative, comfortable and no acute distress O rientation/consciousness: patient oriented x3 Limitations: no limitations HEENT: Head: Yes normal to inspection, Yes normocephalic and Yes atraumatic Ears: hearing grossly normal bilaterally General nose exam: Normal external nose present Face and sinus: Yes normal facial exam Mouth: Normal oral and palatal mucosa present, oropharynx normal and moist mucous membranes Throat: Yes posterior oropharynx normal Eyes: General: appearance normal, both eyes and all related structures E yelids: Yes eyelids normal Conjunctivae: conjunctivae normal Sclerae: s clerae normal Pupils: Equal, round and reactive pupils present EOM: EOMs intact bilaterally Neck: Other: Tenderness palpation along the left cervical paraspinal muscle tenderness. Neck: Yes normal visual inspection, Yes full ROM and Yes no lymphadenopathy Lymphatic: no lymphadenopathy noted Chest: Chest palpation & inspection: normal inspection of the chest Resp: Effort & Inspection: normal respiratory effort and able to speak in complete sentences Auscultation: clear to auscultation bilaterally, no crackles, no rales, no rhonchi and no wheezes Cardio: Rate: regular rate Rhythm: regular rhythm Heart sounds: S1 normal heart sound present and S2 normal heart sound present GI: Other: Abdomen is soft, nontender, nondistended Inspection: Yes normal to inspection Skin: General skin exam: no rashes or lesions noted Trauma: no lacerations or abrasions Wounds: no wounds Neuro: General: patient oriented x3 and moves all extremities Cranial nerves: Yes Equal, round and reactive pupils present Extrem: Other: Left shoulder, with no obvious bony deformity or swelling. She has diffuse tenderness throughout the entire joint, pain worsens with range of motion. Strong radial pulse. General: Yes normal to inspection Right upper extremity: normal to inspection Left upper extremity: normal to inspection Right lower extremity: normal to inspection Left lower extremity: normal to inspection Course Reevaluation(s) Reevaluation #1: EKG normal sinus rhythm, no STEMI. Vital signs within normal limits. Labs returned, patient has no leukocytosis, stable H&H, hyperglycemic at 243, she has a history of diabetes. Troponin less than 2.7 - no chest pain, pain radiates from her left shoulder into her chest, and symptoms have been ongoing for 3 days, no need for repeat. Awaiting x-rays. Time: 13:12 Reevaluation #2: X-rays revealing no acute findings in the left shoulder. She does have degenerative changes seen in the C-spine. Chest x-ray shows no consolidation. She has no chest pain. Patient feeling much better after receiving Tylenol and Toradol. Patient's symptoms likely musculoskeletal in nature. Patient appears to be much more comfortable, patient discharged with strict return precautions. Patient stable for discharge. Time: 15:33 Medications Administered Discontinued Medications Generic Name Dose Route Start Last Admin Trade Name Freq PRN Reason Stop Dose Admin Acetaminophen 975 mg 12/03/24 10:58 12/03/24 11:26 Acetaminophen 325 Mg Tablet PO 12/03/24 10:59 975 mg ONCE ONE Administration Ketorolac Tromethamine 15 mg 12/03/24 13:48 12/03/24 14:14 Ketorolac Tromethamine 15 Mg/Ml Vial IM 12/03/24 13:49 Not Given ONCE ONE Lidocaine 1 patch 12/03/24 15:30 12/03/24 15:47 Lidocaine 4 % Patch Adh..Patch TRANSDERMA 12/03/24 15:31 1 patch ONCE ONE Administration Protocol Medical Decision Making Medical Decision Making MDM Narrative: This is a 64-year-old female who presents emergency department for evaluation of left shoulder pain. On arrival, vital signs within normal limits. She was speaking full sentences under no acute distress. Pain started 2 days ago while she was lying down rolled onto her left side, and has had left shoulder pain that radiates into her chest and into her neck. Denies any shortness of breath. Patient has tenderness palpation along the left shoulder diffusely, full ROM of the shoulder however with pain elicited. Differential diagnoses include muscle strain, sprain, contusion, dislocation, fracture, spasm. Less likely ACS. Plan: Labs, EKG, x-rays, Tylenol 1 g p.o. Differential Diagnosis Differential Diagnoses: The differential diagnosis associated with the presentation includes See above Admission/Observation Consideration of admission/observation: Escalation of care including admission/observation considered Lab Data [facility] Lab Attestation statement: I reviewed the patient's lab results. See MDM and course 12/03/24 11:03 12/03/24 11:03 Labs: Lab Results 12/03/24 Range/Units 11:03 WBC 5.4 (4.8-10.8) X10*3/uL RBC 4.55 (4.20-5.50) X10*6/uL Hgb 13.4 (12.0-16.0) g/dl Hct 39.1 (37.0-47.0) % MCV 85.9 (80.0-98.0) fL MCH 29.5 (27.0-33.0) pg MCHC 34.3 (31.0-35.0) g/dl RDW 11.9 (11.0-16.0) % Plt Count 376 D (160-400) X10*3/uL MPV 10.0 (9.4-12.3) fL Immature Gran % (Auto) 0.2 (0.0-0.4) % Neut % (Auto) 72.9 (45-73) % Lymph % (Auto) 22.6 (20-40) % [place] % (Auto) 3.7 (2-11) % Eos % (Auto) 0.2 (0-4) % Baso % (Auto) 0.4 (0-2) % Lymph # (Auto) 1.2 (1.2-4.9) X10*3/uL [place] # (Auto) 0.2 (0.1-1.2) X10*3/uL Eos # (Auto) 0.0 (0.0-0.4) X10*3/uL Baso # (Auto) 0.0 (0.0-0.2) X10*3/uL Abs Immat Gran (auto) 0.01 (0.00-0.03) X10*3/uL Absolute Neuts (auto) 3.9 (2.0-8.3) x10*3/uL Absolute Nucleated RBC 0.000 (0.0-0.012) X10*3/uL Nucleated RBC % (auto) 0.0 (0.0-0.2) /100WBC PT 11.8 (10.9-12.4) SEC INR 1.0 (0.9-1.1) Sodium 138 (135-145) mmol/L Potassium 4.7 (3.3-5.1) mmol/L Chloride 109 H (96-108) mmol/L Carbon Dioxide 23 (22-29) mmol/L Anion Gap 11 L (12-20) BUN 13 (9-16) mg/dL Creatinine 0.69 (0.5-1.4) mg/dL Estim Creat Clear Calc 90.2 Estimated GFR > 60 Random Glucose 243 H (60-115) mg/dL Calcium 9.4 (8.4-10.2) mg/dL Magnesium 1.8 (1.6-2.6) mg/dL Total Bilirubin 0.4 (0.0-1.0) mg/dL AST 14 (5-31) U/L ALT 17 (0-31) U/L Alkaline Phosphatase 67 (39-117) U/L Troponin I High Sens < 2.7 (<3.5-17.0) ng/L Total Protein 7.2 (6.5-8.0) g/dL Albumin 3.8 (3.5-5.0) g/dL Independent Interpretation I performed an independent interpretation of an: EKG Interpretation: EKG normal sinus rhythm, no ST elevation. NM interval 152, QT QTC 352/435. Radiology Impression Discussion of test interpretation with radiology: I have reviewed the radiologist's reading. Radiologist Impression: EXAMINATION: XR CHEST CLINICAL INFORMATION: pain COMPARISON: February 04, 2023. TECHNIQUE: 2 views of the chest were obtained. FINDINGS: No consolidation, pleural effusion or pneumothorax. Subsegmental atelectasis, right middle lobe. No hyperinflation. Cardiomediastinal silhouette size is normal. Osseous structures are intact. Degenerative changes in the acromioclavicular joints. XR/XR chest 2V IMPRESSION: Subsegmental atelectasis, right middle lobe. Electronically signed by: Jonatan Junior MD 12/03/2024 11:39 AM EDT RP Dictated By: Jonatan Chaudhry MD Ordering Physician: Neena Baptiste Date of Service: 12/03/24 Procedure(s): XR shoulder LT min 2V Accession Number(s): [id number] cc: WYATT BARKER ; Neena Baptiste~ EXAMINATION: XR SHOULDER 2 OR MORE VIEWS LEFT HISTORY: pain COMPARISON: There are no prior studies available for comparison. FINDINGS: Four views of the left shoulder are submitted. Osseous mineralization is normal. There is no fracture or dislocation. The joint spaces are preserved. The soft tissues are unremarkable. XR/XR shoulder LT min 2V IMPRESSION: Unremarkable examination of the left shoulder. Electronically signed by: Christopher Smalls MD 12/03/2024 12:13 PM EDT RP Dictated By: Christopher Smalls MD XR/XR cervical spine 3V IMPRESSION: Degenerative changes of the cervical spine as described. Electronically signed by: Christopher Smalls MD 12/03/2024 12:15 PM EDT RP Dictated By: Christopher Smalls MD Signed By: <Electronically signed by Christopher Smalls MD in OV> Discharge Plan Discharge Clinical Impression: Left shoulder pain, Neck pain Patient Disposition: Home, Self-Care Instructions: Shoulder Pain (ED), Arm Pain (ED), Warm Compress or Soak (ED) Additional Instructions: You were seen in the emergency department due to left shoulder and neck pain. This is likely musculoskeletal in nature. Your symptoms improved after receiving Tylenol and Toradol. Please take prescribed medication as directed. Your workup today was reassuring. Your x-ray of your left shoulder did not show any bony abnormalities. Your neck x-ray does show some degenerative changes. Please follow-up with your primary care physician regarding this visit. If any new or worsening symptoms occur including but not limited to severe chest pain, shortness of breath, please seek emergent care. If you continue to have pain in your left shoulder, you can follow-up with the orthopedist. Prescriptions: New lidocaine [AsperFlex (lidocaine)] 4 % adhesive patch,medicated 1 patch topical DAILY PRN (Reason: pain) Qty: 30 0RF acetaminophen [Tylenol Extra Strength] 500 mg tablet 1,000 mg PO Q8H PRN (Reason: pain) Qty: 30 0RF ibuprofen 600 mg tablet 600 mg PO Q6H PRN (Reason: pain) Qty: 30 0RF No Action levothyroxine 175 mcg tablet 1 tab PO DAILY@0600 insulin glargine [Lantus Solostar U-100 Insulin] 100 unit/mL (3 mL) insulin pen 45 unit subcut BEDTIME albuterol sulfate 90 mcg/actuation HFA aerosol inhaler 2 inh inhalation Q6-8H PRN (Reason: shortness of breath or wheezing) Qty: 18 1RF prednisone 20 mg tablet 20 mg PO DAILY Qty: 3 0RF albuterol sulfate 90 mcg/actuation HFA aerosol inhaler 2 puff inhalation Q4-6H PRN (Reason: shortness of breath or wheezing) Qty: 8.5 1RF prednisone 50 mg tablet 50 mg PO DAILY Qty: 5 0RF triamcinolone acetonide 0.1 % ointment 1 appl topical BID 7 Days Qty: 30 0RF tramadol 50 mg tablet 50 mg PO BID PRN (Reason: pain) Qty: 4 0RF oxycodone 5 mg tablet 5 mg PO BID PRN (Reason: pain) Qty: 5 0RF Rx Instructions: Partial Fill upon patient request. Referrals: [facility] [place] Orthopedic Surgeons [Provider Group] Interventions: ED Discharge Assessment Last Done: 12/03/24 17:01 Discharge Date/Time: 12/03/24 17:02 Print Language: [place]
[2024-12-03 11:11] LABS: MANUAL DIFF FLAG NO
[2024-12-03 11:14] LABS: Basophils Percent Auto 0.4 % (0-2); Eosinophils Percent Auto 0.2 % (0-4); Hematocrit 39.1 % (37.0-47.0); Hemoglobin 13.4 g/dl (12.0-16.0); Imm Gran Abs Auto 0.01 X10*3/uL (0.00-0.03); Imm Gran Pct Auto 0.2 % (0.0-0.4); Lymphocytes Absolute Auto 1.2 X10*3/uL (1.2-4.9); Lymphocytes Percent Auto 22.6 % (20-40); Mean Corpuscular HGB Conc 34.3 g/dl (31.0-35.0); Mean Corpuscular Hemoglobin 29.5 pg (27.0-33.0); Mean Corpuscular Volume 85.9 fL (80.0-98.0); Monocytes Absolute Auto 0.2 X10*3/uL (0.1-1.2); Monocytes Percent Auto 3.7 % (2-11); Neutrophils Absolute Auto 3.9 x10*3/uL (2.0-8.3); Neutrophils Percent Auto 72.9 % (45-73); Platelet Count 376 X10*3/uL (160-400); Red Blood Count 4.55 X10*6/uL (4.20-5.50); Red Cell Distribution Width 11.9 % (11.0-16.0); White Blood Count 5.4 X10*3/uL (4.8-10.8)
[2024-12-03 11:25] LABS: Prothrombin Time 11.8 SEC (10.9-12.4)
[2024-12-03] MEDS: Acetaminophen 325 MG TABLET 975 MG PO (11:26)
[2024-12-03 11:29] VITALS: BP 143/87; PULSE 83; RESP 16; TEMP 36.7; O2SAT 98
[2024-12-03 11:40] LABS: Alanine Aminotransferase 17 U/L (0-31); Albumin Level 3.8 g/dL (3.5-5.0); Alkaline Phosphatase 67 U/L (39-117); Anion Gap 11 (12-20); Aspartate Amino Transferase 14 U/L (5-31); Bilirubin Total 0.4 mg/dL (0.0-1.0); Blood Urea Nitrogen 13 mg/dL (9-16); Calcium 9.4 mg/dL (8.4-10.2); Carbon Dioxide 23 mmol/L (22-29); Chloride 109 mmol/L (96-108); Creatinine Clr Calc Pharmacy 90.2; Estimated Glomerular Filt Rate > 60; Glucose Random 243 mg/dL (60-115); Magnesium 1.8 mg/dL (1.6-2.6); Potassium 4.7 mmol/L (3.3-5.1); Sodium 138 mmol/L (135-145); Total Protein 7.2 g/dL (6.5-8.0)
[2024-12-03 11:49] LABS: Troponin-I High Sensitivity < 2.7 ng/L (<3.5-17.0)
[2024-12-03 13:42] VITALS: BP 118/81; PULSE 71; RESP 14; TEMP 36.7; O2SAT 99
[2024-12-03] MEDS: Lidocaine 4 % Patch ADH..PATCH 1 PATCH TRANSDERMA (15:47)
[2024-12-03 17:01] VITALS: BP 118/81; PULSE 71; RESP 14; TEMP 36.7; O2SAT 99
== END 2024-12-03 17:02 | disposition home or self-care (01) ==
PROVIDERS: Emergency Provider Emergency Medicine Emergency Medical Services; PCP Nurse Practitioner Family
DX: R07.89 Other chest pain (principal); M79.602 Pain in left arm; R94.31 Abnormal electrocardiogram [ECG] [EKG]; M54.2 Cervicalgia; E11.9 Type 2 diabetes mellitus without complications; Z79.899 Other long term (current) drug therapy; Z79.4 Long term (current) use of insulin
CPT/HCPCS: 36415; 71046; 72040; 73030; 80053; 83735; 84484; 85025; 85610; 93005; 96374; 99284; 99285; J1885

== ENCOUNTER → 2024-12-03 10:17 | Outpatient (BNV) | payer OTHER, SELFPAY | PROVIDERS: Emergency Provider Emergency Medicine Emergency Medical Services; PCP Nurse Practitioner Family; Visit Provider Internal Medicine Cardiovascular Disease | DX: R94.31 Abnormal electrocardiogram [ECG] [EKG] (principal); R07.9 Chest pain, unspecified | CPT/HCPCS: 93010 ==

== ENCOUNTER → 2024-12-03 11:00 | Outpatient (BNV) | payer OTHER, SELFPAY | PROVIDERS: Emergency Provider Emergency Medicine Emergency Medical Services; PCP Nurse Practitioner Family; Visit Provider Radiology Diagnostic Radiology | DX: M25.512 Pain in left shoulder (principal); J98.11 Atelectasis; R07.9 Chest pain, unspecified; M50.30 Other cervical disc degeneration, unspecified cervical region | CPT/HCPCS: 71046; 72040; 73030 ==

== ENCOUNTER 2024-12-04 01:20 | Emergency (ER) | payer OTHER, SELFPAY ==
--- NOTE | 2024-12-04 | ECG_ITS ---
Test Reason : CHEST PAIN Blood Pressure : */* mmHG Vent. Rate : 78 BPM Atrial Rate : 78 BPM P-R Int : 158 ms QRS Dur : 72 ms QT Int : 374 ms P-R-T Axes : 66 45 -14 degrees QTcB Int : 426 ms Normal sinus rhythm Nonspecific T wave abnormality Abnormal ECG When compared with ECG of 03-Dec-2024 10:17, No significant change was found Referred By: Generic ED Physician Electronically Signed By: Florentino Rosas
[2024-12-04 01:30] VITALS: BP 138/109; BP 147/79; PULSE 74; PULSE 83; RESP 18; TEMP 36.9; O2SAT 96; O2SAT 97; BMI 33.2
[2024-12-04 01:50] LABS: MANUAL DIFF FLAG NO
[2024-12-04 01:56] LABS: Basophils Percent Auto 0.5 % (0-2); Eosinophils Absolute Auto 0.1 X10*3/uL (0.0-0.4); Eosinophils Percent Auto 0.8 % (0-4); Hematocrit 36.9 % (37.0-47.0); Imm Gran Abs Auto 0.03 X10*3/uL (0.00-0.03); Imm Gran Pct Auto 0.4 % (0.0-0.4); Lymphocytes Absolute Auto 2.5 X10*3/uL (1.2-4.9); Lymphocytes Percent Auto 32.8 % (20-40); Mean Corpuscular HGB Conc 35.2 g/dl (31.0-35.0); Mean Corpuscular Hemoglobin 29.8 pg (27.0-33.0); Mean Corpuscular Volume 84.6 fL (80.0-98.0); Mean Platelet Volume 9.9 fL (9.4-12.3); Monocytes Absolute Auto 0.4 X10*3/uL (0.1-1.2); Monocytes Percent Auto 5.1 % (2-11); Neutrophils Absolute Auto 4.6 x10*3/uL (2.0-8.3); Neutrophils Percent Auto 60.4 % (45-73); Platelet Count 366 X10*3/uL (160-400); Red Blood Count 4.36 X10*6/uL (4.20-5.50); Red Cell Distribution Width 11.9 % (11.0-16.0); White Blood Count 7.7 X10*3/uL (4.8-10.8)
[2024-12-04 02:20] LABS: Troponin-I High Sensitivity < 2.7 ng/L (<3.5-17.0)
[2024-12-04 02:25] LABS: Alanine Aminotransferase 15 U/L (0-31); Albumin Level 3.7 g/dL (3.5-5.0); Alkaline Phosphatase 68 U/L (39-117); Anion Gap 13 (12-20); Aspartate Amino Transferase 18 U/L (5-31); Bilirubin Total 0.3 mg/dL (0.0-1.0); Blood Urea Nitrogen 18 mg/dL (9-16); Calcium 9.4 mg/dL (8.4-10.2); Carbon Dioxide 23 mmol/L (22-29); Chloride 106 mmol/L (96-108); Creatinine Clr Calc Pharmacy 82.5; Estimated Glomerular Filt Rate > 60; Glucose Random 251 mg/dL (60-115); Potassium 3.9 mmol/L (3.3-5.1); Sodium 138 mmol/L (135-145); Total Protein 7.2 g/dL (6.5-8.0)
--- NOTE | 2024-12-04 02:43 | ED_ITS ---
HPI - Chest Pain General Chief Complaint: Chest Pain Stated Complaint: CP X1 day Time Seen by Provider: 12/04/24 02:07 Source: patient Mode of arrival: ambulatory Limitations: no limitations History of Present Illness ED Provider: Dr. Concepcion Banks HPI narrative: Patient comes to the emergency room complaining of left-sided shoulder pain for 3 days. Patient was seen here earlier today. Patient states that she was given lidocaine patch and ibuprofen and Tylenol and she is still having left shoulder pain when she moves it. Patient denies any shortness of breath, palpitations, abdominal pain, nausea vomiting or diarrhea. Related Data Home Medications ?Medication ?Instructions ?Recorded ?Confirmed insulin glargine 100 unit/mL (3 45 unit subcut BEDTIME 12/03/22 12/03/22 mL) subcutaneous pen (Lantus Solostar U-100 Insulin) levothyroxine 175 mcg tablet 1 tab PO DAILY@0600 12/03/22 12/03/22 Previous Rx's ?Medication ?Instructions ?Recorded albuterol sulfate 90 mcg/actuation 2 inh inhalation Q6-8H PRN 12/05/22 aerosol inhaler shortness of breath or wheezing #18 grams prednisone 20 mg tablet 20 mg PO DAILY #3 tabs 12/05/22 albuterol sulfate 90 mcg/actuation 2 puff inhalation Q4-6H PRN 02/04/23 aerosol inhaler shortness of breath or wheezing #8.5 grams prednisone 50 mg tablet 50 mg PO DAILY #5 tabs 02/04/23 triamcinolone acetonide 0.1 % 1 appl topical BID 1 week #30 grams 05/22/24 topical ointment acetaminophen 500 mg tablet 1,000 mg (2 x 500 mg) PO Q8H PRN 12/03/24 (Tylenol Extra Strength) pain #30 tabs ibuprofen 600 mg tablet 600 mg PO Q6H PRN pain #30 tabs 12/03/24 lidocaine 4 % topical patch 1 patch topical DAILY PRN pain #30 12/03/24 (AsperFlex (lidocaine)) ea tramadol 50 mg tablet 50 mg PO BID PRN pain #4 tabs 12/04/24 Allergies Allergy/AdvReac Type Severity Reaction Status Date / Time No Known Allergies Allergy Verified 12/04/24 01:32 [No Known Allergies*] Review of Systems 2 Review of Systems: Constitutional : No Weight loss, No Fever, No Chills, No Night Sweats, No Fatigue, No Malaise ENT/Mouth : No Hearing loss, No Ear Pain, No Nasal Congestion, No Sinus Pain, No Hoarseness, No sore throat, No Rhinorrhea, No Swallowing Difficulty Eyes: No Eye Pain, No Swelling, No Redness, No Foreign Body, No Discharge, No Vision Changes Cardiovascular : No Chest Pain, No SOB, No Dyspnea on Exertion, No Orthopnea, No Edema, No Palpitations Respiratory : No Cough, No Sputum, No Wheezing, No Smoke Exposure, No Dyspnea Gastrointestinal : No Nausea, No Vomiting, No Diarrhea, No Constipation, No abdominal Pain, No Hematochezia, No Melena Genitourinary : no irregular bleeding, No Dysuria, No Urinary Frequency, No Hematuria, No Urinary Incontinence, No Urgency, No Flank Pain, No Urinary Flow Changes, No Hesitancy Musculoskeletal complaining of left shoulder pain for 3 days. No Myalgias, No Joint Swelling Skin : No Skin Lesions, No rash Neuro : No Weakness, No Numbness, No Paresthesias, No Loss of Consciousness, No Dizziness, No Headache Psych : No Anxiety/Panic, No Depression, No SI/HI/AH/VH, No Social Issues, Heme/Lymph: No Bruising, No Bleeding,No Lymphadenopathy Endocrine : No Polyuria, No Polydipsia, No Temperature Intolerance [facility] Past Medical History Medical History Diabetes type 2, controlled Asthma Hypothyroid Social History Social History Household Members: Family Housing: House Alcohol intake: never Patient Tobacco Use Status: Former Tobacco user service: No Current occupational status: unemployed Physical Exam 2 Vital Signs: Vital Signs: Last Vital Signs Temp 98.4 F 12/04/24 01:30 Pulse 74 12/04/24 01:30 Resp 18 12/04/24 01:30 BP 138/109 H 12/04/24 01:30 Pulse Ox 96 12/04/24 01:30 O2 Del Method Room Air 12/04/24 01:30 BMI result Body Mass Index 33.2 Const: Other: Appearance: Alert. Oriented X3. No acute distress. Eyes: Pupils equal, round and reactive to light. ENT: Pharynx normal. Neck: Normal inspection. Neck supple. No lymph nodes noted. No crepitus CVS: Normal heart rate and rhythm. Pulses normal. Normal S1 and S2 Respiratory: No respiratory distress. Breath sounds normal. No Wheezing. No rales Abdomen: Soft and nontender. No rigidity. No distention. Skin: Skin warm and dry. Normal skin color. Normal skin turgor. Extremities: No lower extremity edema. No Lacerations. No Rash, pain with arm abduction., no reproducible pain to palpation. Neuro: Oriented X 3. No motor deficit. No sensory deficit. Moving all extremities. No slurred speech. CN 2 through 12 grossly intact Psych: calm, cooperative, normal affect Medical Decision Making Medical Decision Making MDM Narrative: My interpretation of labs: Normal sinus rhythm, heart rate 78, no ST segment depression or elevation, no T-wave inversion, QTC 426 My interpretation of labs: No significant abnormality in patient's hematology or chemistry, troponin negative, patient has had 2 troponins done within 24 hours, negative Patient has reproducible shoulder pain. Shoulder X-rays from yesterday are unremarkable Patient's x-ray from yesterday shows subsegmental atelectasis in the right middle low. However, patient denies any URI symptoms, denies cough, denies right-sided chest pain. Patient was given a dose of tramadol. I discussed with the patient that if the pain does not improve, she may need an MRI to rule out a rotator cuff injury. I also discussed with the patient that musculoskeletal pain takes longer to heal. P.o. medication will help with the pain but he will not cure her. Discussed with the patient that eventually she may need a referral through her primary care physician for an MRI or physical therapy. Differential Diagnosis Differential Diagnoses: The differential diagnosis associated with the presentation includes (ACS, musculoskeletal chest pain, musculoskeletal shoulder pain, rotator cuff injury) Lab Data MDM Lab Attestation statement: I reviewed the patient's lab results. 12/04/24 01:46 12/04/24 01:46 Labs: Lab Results 12/04/24 Range/Units 01:46 WBC 7.7 (4.8-10.8) X10*3/uL RBC 4.36 (4.20-5.50) X10*6/uL Hgb 13.0 (12.0-16.0) g/dl Hct 36.9 L (37.0-47.0) % MCV 84.6 (80.0-98.0) fL MCH 29.8 (27.0-33.0) pg MCHC 35.2 H (31.0-35.0) g/dl RDW 11.9 (11.0-16.0) % Plt Count 366 (160-400) X10*3/uL MPV 9.9 (9.4-12.3) fL Immature Gran % (Auto) 0.4 (0.0-0.4) % Neut % (Auto) 60.4 (45-73) % Lymph % (Auto) 32.8 (20-40) % Calhoun % (Auto) 5.1 (2-11) % Eos % (Auto) 0.8 (0-4) % Baso % (Auto) 0.5 (0-2) % Lymph # (Auto) 2.5 (1.2-4.9) X10*3/uL Calhoun # (Auto) 0.4 (0.1-1.2) X10*3/uL Eos # (Auto) 0.1 (0.0-0.4) X10*3/uL Baso # (Auto) 0.0 (0.0-0.2) X10*3/uL Abs Immat Gran (auto) 0.03 (0.00-0.03) X10*3/uL Absolute Neuts (auto) 4.6 (2.0-8.3) x10*3/uL Absolute Nucleated RBC 0.000 (0.0-0.012) X10*3/uL Nucleated RBC % (auto) 0.0 (0.0-0.2) /100WBC Sodium 138 (135-145) mmol/L Potassium 3.9 (3.3-5.1) mmol/L Chloride 106 (96-108) mmol/L Carbon Dioxide 23 (22-29) mmol/L Anion Gap 13 (12-20) BUN 18 H (9-16) mg/dL Creatinine 0.72 (0.5-1.4) mg/dL Estim Creat Clear Calc 82.5 Estimated GFR > 60 Random Glucose 251 H (60-115) mg/dL Calcium 9.4 (8.4-10.2) mg/dL Total Bilirubin 0.3 (0.0-1.0) mg/dL AST 18 (5-31) U/L ALT 15 (0-31) U/L Alkaline Phosphatase 68 (39-117) U/L Troponin I High Sens < 2.7 (<3.5-17.0) ng/L Total Protein 7.2 (6.5-8.0) g/dL Albumin 3.7 (3.5-5.0) g/dL Discharge Plan Discharge Clinical Impression: Acute pain of left shoulder Patient Disposition: Home, Self-Care Instructions: Shoulder Pain (ED) Additional Instructions: Please follow-up with your primary care physician. You may need more advanced imaging such as MRI or physical therapy. Please follow-up with your primary care physician tomorrow. If you have any worsening or new symptoms, please return to the emergency room or call 911 Prescriptions: New tramadol 50 mg tablet 50 mg PO BID PRN (Reason: pain) Qty: 4 0RF No Action levothyroxine 175 mcg tablet 1 tab PO DAILY@0600 insulin glargine [Lantus Solostar U-100 Insulin] 100 unit/mL (3 mL) insulin pen 45 unit subcut BEDTIME albuterol sulfate 90 mcg/actuation HFA aerosol inhaler 2 inh inhalation Q6-8H PRN (Reason: shortness of breath or wheezing) Qty: 18 1RF prednisone 20 mg tablet 20 mg PO DAILY Qty: 3 0RF albuterol sulfate 90 mcg/actuation HFA aerosol inhaler 2 puff inhalation Q4-6H PRN (Reason: shortness of breath or wheezing) Qty: 8.5 1RF prednisone 50 mg tablet 50 mg PO DAILY Qty: 5 0RF triamcinolone acetonide 0.1 % ointment 1 appl topical BID 7 Days Qty: 30 0RF lidocaine [AsperFlex (lidocaine)] 4 % adhesive patch,medicated 1 patch topical DAILY PRN (Reason: pain) Qty: 30 0RF acetaminophen [Tylenol Extra Strength] 500 mg tablet 1,000 mg PO Q8H PRN (Reason: pain) Qty: 30 0RF ibuprofen 600 mg tablet 600 mg PO Q6H PRN (Reason: pain) Qty: 30 0RF Print Language: Citizen [place]
[2024-12-04] MEDS: traMADoL HCL 50 MG TABLET PO (03:01)
[2024-12-04 03:22] VITALS: PULSE 83
[2024-12-04 03:25] VITALS: BP 132/97; PULSE 81; RESP 18; TEMP 36.7; O2SAT 97
== END 2024-12-04 03:26 | disposition home or self-care (01) ==
PROVIDERS: Emergency Provider Emergency Medicine; PCP Pediatrics
DX: M25.512 Pain in left shoulder (principal); R07.9 Chest pain, unspecified; E11.9 Type 2 diabetes mellitus without complications; E03.9 Hypothyroidism, unspecified; Z79.899 Other long term (current) drug therapy
CPT/HCPCS: 36415; 80053; 84484; 85025; 93005; 99283; 99285

== ENCOUNTER → 2024-12-04 01:35 | Outpatient (BNV) | payer OTHER, SELFPAY | PROVIDERS: Emergency Provider Emergency Medicine; PCP Pediatrics; Visit Provider Internal Medicine Cardiovascular Disease | DX: R94.31 Abnormal electrocardiogram [ECG] [EKG] (principal); R07.9 Chest pain, unspecified | CPT/HCPCS: 93010 ==

== ENCOUNTER 2024-12-06 00:55 | Emergency (ER) | payer OTHER, SELFPAY ==
[2024-12-06 01:08] VITALS: BP 135/77; BP 146/77; PULSE 76; PULSE 87; RESP 17; TEMP 36.6; O2SAT 96; O2SAT 99; BMI 35.5
--- NOTE | 2024-12-06 03:33 | PC.NURSE ---
Provider to bedside for primary eval.
--- NOTE | 2024-12-06 03:46 | ED.GENADULT ---
HPI - General Adult General Chief complaint: Extremity Problem Stated complaint: Shoulder, Arm and neck pain 170/108 Bp Time Seen by Provider: 12/06/24 03:44 Source: patient and physician assistant Mode of arrival: ambulatory Limitations: no limitations History of Present Illness ED Provider: DR. Dudley HPI narrative: 64-year-old Moldovan-speaking female with past medical history of hypothyroidism, asthma, and diabetes presented to the emergency room with a concern of left shoulder pain and chest pain for the past 3 days patient stated that 4 days ago she woke up from sleep turn her head to the right when she felt a pop ever since she has been having neck pain radiating down to the left shoulder and the front of her chest, today is the 3rd visit for the patient in the last 4 days for the same symptoms, patient had a negative cardiac workup, x-rays of the C-spine, chest, and shoulder revealed degenerative disease with no acute findings. Patient was sent home on lidocaine patch, Tylenol, ibuprofen, and tramadol the patient reported with no relief of her pain. Related Data Home Medications ?Medication ?Instructions ?Recorded ?Confirmed insulin glargine 100 unit/mL (3 45 unit subcut BEDTIME 12/03/22 12/03/22 mL) subcutaneous pen (Lantus Solostar U-100 Insulin) levothyroxine 175 mcg tablet 1 tab PO DAILY@0600 12/03/22 12/03/22 Previous Rx's ?Medication ?Instructions ?Recorded albuterol sulfate 90 mcg/actuation 2 inh inhalation Q6-8H PRN 12/05/22 aerosol inhaler shortness of breath or wheezing #18 grams prednisone 20 mg tablet 20 mg PO DAILY #3 tabs 12/05/22 albuterol sulfate 90 mcg/actuation 2 puff inhalation Q4-6H PRN 02/04/23 aerosol inhaler shortness of breath or wheezing #8.5 grams prednisone 50 mg tablet 50 mg PO DAILY #5 tabs 02/04/23 triamcinolone acetonide 0.1 % 1 appl topical BID 1 week #30 grams 05/22/24 topical ointment acetaminophen 500 mg tablet 1,000 mg (2 x 500 mg) PO Q8H PRN 12/03/24 (Tylenol Extra Strength) pain #30 tabs ibuprofen 600 mg tablet 600 mg PO Q6H PRN pain #30 tabs 12/03/24 lidocaine 4 % topical patch 1 patch topical DAILY PRN pain #30 12/03/24 (AsperFlex (lidocaine)) ea tramadol 50 mg tablet 50 mg PO BID PRN pain #4 tabs 12/04/24 oxycodone 5 mg tablet 5 mg PO BID PRN pain #5 tabs 12/06/24 Allergies Allergy/AdvReac Type Severity Reaction Status Date / Time No Known Allergies Allergy Verified 12/06/24 01:09 [No Known Allergies*] Review of Systems Review of Systems: All other systems are reviewed and are negative Constitutional: Reports as per HPI and Reports no additional constitutional complaints Eyes: Reports as per HPI and Reports no additional eye complaints Reports system reviewed and no additional complaints, except as documented Cardiovascular: Reports as per HPI and Reports no additional cardiovascular complaints Respiratory: Reports as per HPI and Reports no additional respiratory complaints Gastrointestinal: Reports as per HPI and Reports no additional gastrointestinal complaints Genitourinary: Reports no additional female genitourinary complaints Musculoskeletal: Reports no additional musculoskeletal complaints Skin/Breast: Reports system reviewed and no additional complaints, except as docu Psychiatric: Reports no additional psychiatric complaints Endocrine: Reports no additional endocrine complaints Hematologic/Lymphatic: Reports no additional hematologic/lymphatic complaints Allergic/Immunologic: Reports no additional allergic/immunologic complaints Reports system reviewed and no additional complaints, except as documented and Reports Abnormal speech present [facility] Past Medical History Medical History Diabetes type 2, controlled Asthma Hypothyroid Social History Social History Household Members: Family Housing: House Alcohol intake: never Patient Tobacco Use Status: Former Tobacco user Smoked in Last 30 Days: No Use of substances other than those prescribed or required for medical reasons: No Advance Directives: No Advance Directives Information Provided: Yes Do you have a plan to hurt others: No Plan Patient : No service: No Current occupational status: unemployed Physical Exam ED Vital Signs: Vital Signs - 24 hr 12/06/24 01:08 Temperature 97.9 F Pulse Rate 87 Respiratory Rate 17 Blood Pressure 135/77 Pulse Oximetry 96 Oxygen Delivery Method Room Air BMI result Body Mass Index 35.5 Vital signs have been reviewed and appear to be correct. Blood pressure elevated. Heart rate normal. Respiratory rate normal. Temperature normal. Oxygen saturation normal. Appearance: Alert. Oriented X3. No acute distress. Head: Normal external exam. Normocephalic. Atraumatic. No Fletcher signs noted. No raccoon eyes noted Eyes: PERRLA. EOMI. Conjunctiva and sclera normal. Eyelids normal. ENT: TM's Normal. Pharynx normal. Uvula midline. Moist mucous membranes. No trismus noted. No drooling noted. No muffled voice noted. Neck: Normal inspection. Neck supple. FROM. No adenopathy. Thyroid Normal. No meningeal signs. No neck mass noted. CVS: Normal heart rate and rhythm. Heart sound normal. No murmurs noted. Pulses normal throughout. Respiratory: No respiratory distress. Painless inspiration. Breath sounds normal. No wheezes/rales/rhonchi noted. Chest nontender. No accessory muscle usage noted or decreased air movement noted. Abdomen: Soft and nontender. Bowel sounds normal in all 4 quadrants. No distention noted. No organomegaly noted. No visible injury noted. Back: No CVA tenderness. Full range of motion noted. Skin: Skin warm and dry. Normal skin color. Normal skin turgor. No rashes/lesions/lacerations noted. Extremities: No lower extremity edema. Extremities exhibit normal range of motion. Extremities nontender. Neuro: Oriented X 3. Cranial nerve exam: II-XII are grossly intact No motor deficit. No sensory deficit. Reflexes normal. Course Reevaluation(s) Reevaluation #1: Cervical radiculopathy, patient feels better after injection of morphine and tramadol. Will discharge the patient on oxycodone. Time: 04:56 Medications Administered Discontinued Medications Generic Name Dose Route Start Last Admin Trade Name Freq PRN Reason Stop Dose Admin Ketorolac Tromethamine 15 mg 12/06/24 03:44 12/06/24 03:58 Ketorolac Tromethamine 15 Mg/Ml Vial IM 12/06/24 03:45 15 mg ONCE ONE Administration Morphine Sulfate 2 mg 12/06/24 03:44 12/06/24 03:58 Morphine Sulfate 2 Mg/Ml Cartridge IM 12/06/24 03:45 2 mg ONCE ONE Administration Protocol Medical Decision Making Differential Diagnosis Differential Diagnoses: The differential diagnosis associated with the presentation includes (Cervical radiculopathy, ACS, pneumonia, pneumothorax, chest wall pain, muscular pain.) Admission/Observation Consideration of admission/observation: Escalation of care including admission/observation considered Discharge Plan Discharge Clinical Impression: Left cervical radiculopathy Patient Disposition: Home, Self-Care Instructions: Cervical Radiculopathy (ED) Prescriptions: New oxycodone 5 mg tablet 5 mg PO BID PRN (Reason: pain) Qty: 5 0RF Rx Instructions: Partial Fill upon patient request. No Action levothyroxine 175 mcg tablet 1 tab PO DAILY@0600 insulin glargine [Lantus Solostar U-100 Insulin] 100 unit/mL (3 mL) insulin pen 45 unit subcut BEDTIME albuterol sulfate 90 mcg/actuation HFA aerosol inhaler 2 inh inhalation Q6-8H PRN (Reason: shortness of breath or wheezing) Qty: 18 1RF prednisone 20 mg tablet 20 mg PO DAILY Qty: 3 0RF albuterol sulfate 90 mcg/actuation HFA aerosol inhaler 2 puff inhalation Q4-6H PRN (Reason: shortness of breath or wheezing) Qty: 8.5 1RF prednisone 50 mg tablet 50 mg PO DAILY Qty: 5 0RF triamcinolone acetonide 0.1 % ointment 1 appl topical BID 7 Days Qty: 30 0RF lidocaine [AsperFlex (lidocaine)] 4 % adhesive patch,medicated 1 patch topical DAILY PRN (Reason: pain) Qty: 30 0RF acetaminophen [Tylenol Extra Strength] 500 mg tablet 1,000 mg PO Q8H PRN (Reason: pain) Qty: 30 0RF ibuprofen 600 mg tablet 600 mg PO Q6H PRN (Reason: pain) Qty: 30 0RF tramadol 50 mg tablet 50 mg PO BID PRN (Reason: pain) Qty: 4 0RF Print Language: Moldovan
[2024-12-06] MEDS: Ketorolac Tromethamine 15 MG/ML VIAL IM (03:58)
[2024-12-06] MEDS: Morphine Sulfate 2 MG/ML CARTRIDGE IM (03:58)
[2024-12-06 05:12] VITALS: BP 144/89; PULSE 87; RESP 17; TEMP 36.8; O2SAT 98
== END 2024-12-06 05:14 | disposition home or self-care (01) ==
PROVIDERS: Emergency Provider Emergency Medicine
DX: M54.12 Radiculopathy, cervical region (principal); E11.9 Type 2 diabetes mellitus without complications; J45.909 Unspecified asthma, uncomplicated; E03.9 Hypothyroidism, unspecified; Z79.4 Long term (current) use of insulin; Z79.899 Other long term (current) drug therapy
CPT/HCPCS: 96372; 99284; J1885; J2270

== ENCOUNTER 2024-12-25 14:42 | Outpatient (AMB) | payer OTHER, SELFPAY ==
--- NOTE | 2024-12-25 14:49 | MHC.OFFVIS ---
Vital Signs 12/25/24 14:56 Height 5 ft Weight 173 lb BMI 33.8 Handedness Right Intake Visit Reasons: ED f/u - Left shoulder pain Intake Note: Kassandra is a 64 year old right hand dominant female who presents today with her daughter as a new patient for evaluation of her left shoulder pain. Patient reports she turned her head a certain way and she felt a sharp pain got from her shoulder and to her back. Her pain is on the anterior aspect of the shoulder and it radiates up to her neck when she tilts her head up. Patient express her pain is ongoing pain for 3 weeks and her pain is worse at night. They gave her an injection at the ED in both shoulder but she is unsure if it was cortisone. IMPRESSION: Unremarkable examination of the left shoulder Community Assistant Services: Community Assistant Present (Dylon ([id number])) Allergies No Known Allergies [No Known Allergies*] Allergy (Verified 12/25/24 14:55) HPI HPI ED f/u - Left shoulder pain: Details: Ms. Wade Warren is a 64 year old right hand dominant female who presents today with her daughter as a new patient for evaluation of her bilateral shoulder pain left greater than right. Patient reports she turned her head to the side and felt a sharp pain in the back of the neck and shoulder. She states that the pain has been present for the past three weeks and is positional depending on the motion of her neck. She presented to the ED on 12/06/24 due to the pain where x-rays were obtained on the left shoulder and negative for any acute fracture or dislocation. She describes getting injections in bilateral shoulders which sound like Toradol. [facility] Medical History Diabetes type 2, controlled Asthma Hypothyroid Social History (Updated 12/25/24 @ 14:56 by Maru Bryant) Household Members: Family Housing: House Alcohol intake: never Patient Tobacco Use Status: Former Tobacco user service: No Current occupational status: disabled Current occupation: right hand dominant Review of Systems Const All systems reviewed & are unremarkable except as noted in HPI and below Physical Exam Vital Signs: BMI result Body Mass Index 33.8 Const General: cooperative, healthy appearing and no acute distress Resp Effort & Inspection: normal respiratory effort and able to speak in complete sentences Cardio Rate: regular rate Peripheral pulses: Peripheral pulses 2+ throughout Skin Lesions: no lesions Rashes: no rashes Extrem Other: Left shoulder: Full ROM in all planes. 5/5 strength with empty can. Negative drop arm. Negative cross body reach. NVI. Right shoulder: Full ROM in all planes. 5/5 strength with empty can. Negative drop arm. Negative cross body reach. NVI. Assessment & Plan Assessment & Plan (1) Left cervical radiculopathy: Code(s): M54.12 - Radiculopathy, cervical region Category: Medical Plan Ms. Wade Warren is a 64 year old right hand dominant female who presents today with her daughter as a new patient for evaluation of her bilateral shoulder pain left greater than right. Patient reports she turned her head to the side and felt a sharp pain in the back of the neck and shoulder. She states that the pain has been present for the past three weeks and is positional depending on the motion of her neck. She presented to the ED on 12/06/24 due to the pain where x-rays were obtained on the left shoulder and negative for any acute fracture or dislocation. She describes getting injections in bilateral shoulders which sound like Toradol. While in the office today we discussed that her symptoms are likely radiating from her neck as the pain is only reproduced with motion of her c-spine. I have recommended that the patient seen Dr. Kruse for further evaluation and treatment of her c-spine. Her f/u with orthopedics will be p.r.n., sooner if needed. X-rays of the right shoulder obtained in the office today are negative for any acute fracture or dislocation. X-rays of the left shoulder obtained on 12/03/24 IMPRESSION: Unremarkable examination of the left shoulder. Coding Level of Care Code New Pt Level 3 (62700) Diagnoses Left cervical radiculopathy M54.12
[2024-12-25 14:56] VITALS: BMI 33.8
--- OUTSIDE RECORDS SUMMARY | 2024-12-25 17:49 | XMS_ITS | Clinical Summary ---
Author Organization [facility] Address [address] [place] [address] Care Team Providers Care Brand Engineer Name Role Phone Unknown Primary Care Provider [phone] Allergies No known active allergies Medications Medication Sig Dispensed Refills Start Date End Date Status levothyroxine (SYNTHROID, LEVOTHROID) 175 MCG tablet Take 175 mcg by mouth daily on an empty stomach. Active oxyCODONE-acetaminop hen (PERCOCET) 5-325 mg per tablet Take 1 tablet by mouth 4 times daily (every 6 hours) as needed for severe pain. Active albuterol (PROVENTIL HFA; VENTOLIN HFA) 108 (90 Base) MCG/ACT inhaler Inhale 2 puffs every 4 (four) hours as needed for wheezing. Active diphenhydrAMINE (BENADRYL) 25 mg capsule Take 25 mg by mouth 4 times daily (every 6 hours) as needed for itching. Active metFORMIN (GLUCOPHAGE-XR) 500 MG 24 hr tablet Take 500 mg by mouth every morning with breakfast. Swallow whole. Do not crush, break or chew. Active predniSONE (DELTASONE) 20 MG tabletIndications:Sk in rash Take 3 tablets (60 mg total) by mouth daily. Take 60 mg for 6 days then 40 mg for 7 days then 20 mg for 7 days. Do not start before November 28, 2019. 39 tablet 11/28/2019 Active triamcinolone (KENALOG) 0.1 % ointmentIndications: Skin rash Apply topically 2 (two) times a day. 453.6 g 11/27/2019 Active insulin glargine (LANtus) 100 units/mL injectionIndications :Skin rash Inject 0.35 mL (35 Units total) under the skin nightly. 10 mL 11/27/2019 Active Resolved Problems Problem Noted Date Diagnosed Date Resolved Date Skin rash 11/22/2019 12/01/2023 Family History Medical History Relation Name Comments Asthma Father Diabetes Mother Relation Name Status Comments Father Mother Social History Tobacco Use Types Packs/Day Years Used Date Smoking Tobacco: Never Smokeless Tobacco: Never Alcohol Use Standard Drinks/Week Comments Not Currently 0 (1 standard drink = 0.6 oz pur e alcohol) Sex and Gender Information Value Date Recorded Sex Assigned at Not on file Gender Identity Not on file Sexual Orientation Not on file Last Filed Vital Signs Vital Sign Reading Time Taken Comments Blood Pressure 136/62 11/27/2019 3:52 AM EDT Pulse 65 11/27/2019 3:52 AM EDT Temperature 35.9 ??C (96.7 ??F) 11/27/2019 3:52 AM ED T Respiratory Rate 18 11/27/2019 3:52 AM EDT Oxygen Saturation 97% 11/27/2019 5:25 AM EDT Inhaled Oxygen Concentration - - Weight - - Height - - Body Mass Index - - Plan of Treatment Health Maintenance Due Date Last Done Comments DTaP/Tdap/Td Vaccines (1 - Tdap) 1980 Pap Smear (Ages 21-65) 1982 Mammogram 2001 Colonoscopy 2006 Pneumococcal Vaccines 50+ (1 of 1 - PCV) 2011 Zoster (Shingles) Vaccine (1 of 2) 2011 RSV Vaccine 60 years and old er and Patients (1 - Risk 60-74 years 1-dose series) 2021 Influenza Vaccine 04/19/2024 COVID-19 Vaccine (1 - 2023-2 5 season) 2024 Hemoglobin A1C Discontinued 11/23/2019 HIV Screening Completed 11/25/2019 Hepatitis C Virus Screening Completed 11/25/2019 Hepatitis B Vaccines Aged Out No long er eligible based on patient's age to complete this topic Pneumococcal Vaccine: Pediat digna (0-5 Years) and At-Risk Patients (6 to 49 Years) Aged Out No longer eligible b ased on patient's age to complete this topic Procedures Procedure Name Priority Date/Time Associated Diagnosis Comments HIV 1/2 AG/AB CMIA REFLEX TO CONFIRMATION Routine 11/25/2019 4:15 PM EDT HEPATITIS C VIRUS (HCV) ANTIBODY HPCB Routine 11/25/2019 4:15 PM EDT HEMOGLOBIN A1C WITH ESTIMATED AVERAGE GLUCOSE Routine 11/23/2019 1:44 PM EST from Last 3 Months or Most Recently Relevant to Health Maintenance Results * Hepatitis C Virus (HCV) Antibody (11/25/2019 4:15 PM EDT) Pathologist [facility] Hepatitis C Antibody 0.17 0.00 - 0.79 S/CO ratio HOSPITAL LAB Hepatitis C Antibody Interpretation Nonreactive Nonreactive HOSPITAL LAB Comment:Performed at [facility], [place], [place] License 0385 CLIA [id number] Blood specimen (specimen) Blood specimen / Unknown 11/25/2019 4:15 PM EDT 11/25/2019 4:51 PM EDT Chidi Pickett Jr., MD LAB BLOOD OR DERABLES Performing Organization Address City/[facility]/ZIP Co de Phone Number HOSPITAL LAB * HIV 1/2 Ag/Ab CMIA Reflex to Confirmation (11/25/2019 4:15 PM EDT) Pathologist [facility] HIV 1/2 Ag/Ab CMIA Nonreactive Nonreactive HOSPITAL LAB Comment: Results show no evidence of infection by HIV 1/2. If clinically indicated, repeat CMIA or test by nucleic acid amplification. Performed at [facility], [place], [place] License 0385 ??CLIA [id number] Blood specimen (specimen) Blood specimen / Unknown 11/25/2019 4:15 PM EDT 11/25/2019 4:51 PM EDT Chidi Pickett Jr., MD LAB BLOOD OR DERABLES Performing Organization Address City/[facility]/ZIP Co de Phone Number [facility] * (ABNORMAL) Hemoglobin A1c with Estimated Average Glucose (11/23/2019 1:44 PM EST) Pathologist [facility] Hemoglobin A1C 11.8(H) <5.7 % HOSPITAL LAB Comment: A1c% ? Interpretation 5.7 - 6.0 ?Increase risk of diabetes 6.1 - 6.4 ?Higher risk of diabetes > or = 6.5 ?? Consistent with diabetes Diabetes Care, 33(Supp 1):S1-S61, 2010 Estimated Average Glucose 292 mg/dL [facility]OS[facility]ITAL [facility] Blood specimen (specimen) Blood specimen / Unknown 11/23/2019 1:44 PM EST 11/23/2019 1:57 PM EST Comment:#PT HARD VEIN AT07:3 5/ Rubi Browning MD LAB BLOOD ORDERABLES HOSPITAL LAB from Last 3 Months or Most Recently Relevant to Health Maintenance Advance Directives * Full Code (Latest Code Status on File) Date Activated Date Inactivated Comments 11/22/2019 7:23 AM Care Teams Brand Engineer Relationship Specialty Start Date End Date Unknown Unknow Provider Address PCP - General 11/21/19
== END 2024-12-25 15:18 | disposition home or self-care (01) ==
LOC: HO.HOS 14:43
PROVIDERS: Visit Provider Physician Assistant
DX: M54.12 Radiculopathy, cervical region (principal)
CPT/HCPCS: 99203

== ENCOUNTER → 2024-12-25 14:42 | Outpatient (BNVA) | payer OTHER, SELFPAY | PROVIDERS: Visit Provider Physician Assistant | DX: M54.12 Radiculopathy, cervical region (principal) | CPT/HCPCS: 99202 ==

== ENCOUNTER 2025-08-14 15:56 | Emergency (ER) | payer OTHER, SELFPAY ==
[2025-08-14 16:01] VITALS: BP 140/71; PULSE 89; RESP 16; TEMP 36.8; O2SAT 95; BMI 34.5
--- NOTE | 2025-08-14 16:02 | ED.GENADULT ---
HPI - General Adult General Chief complaint: Upper Respiratory Symptoms Stated complaint: General Medical Time Seen by Provider: 08/14/25 16:18 Source: patient Mode of arrival: ambulatory Limitations: no limitations History of Present Illness ED Provider: Dr. Patiño HPI narrative: This is a 65-year-old female presented hospital today for sore throat for the past couple of days. Patient stated that she has difficulty eating due to the sore throat. Denies any fever however does endorse some swollen of the right side of her neck. Related Data Home Medications ?Medication ?Instructions ?Recorded ?Confirmed insulin glargine 100 unit/mL (3 45 unit subcut BEDTIME 12/03/22 12/03/22 mL) subcutaneous pen (Lantus Solostar U-100 Insulin) levothyroxine 175 mcg tablet 1 tab PO DAILY@0600 12/03/22 12/03/22 Previous Rx's ?Medication ?Instructions ?Recorded albuterol sulfate 90 mcg/actuation 2 inh inhalation Q6-8H PRN 12/05/22 aerosol inhaler shortness of breath or wheezing #18 grams prednisone 20 mg tablet 20 mg PO DAILY #3 tabs 12/05/22 albuterol sulfate 90 mcg/actuation 2 puff inhalation Q4-6H PRN 02/04/23 aerosol inhaler shortness of breath or wheezing #8.5 grams prednisone 50 mg tablet 50 mg PO DAILY #5 tabs 02/04/23 triamcinolone acetonide 0.1 % 1 appl topical BID 1 week #30 grams 05/22/24 topical ointment acetaminophen 500 mg tablet 1,000 mg (2 x 500 mg) PO Q8H PRN 12/03/24 (Tylenol Extra Strength) pain #30 tabs ibuprofen 600 mg tablet 600 mg PO Q6H PRN pain #30 tabs 12/03/24 lidocaine 4 % topical patch 1 patch topical DAILY PRN pain #30 12/03/24 (AsperFlex (lidocaine)) ea tramadol 50 mg tablet 50 mg PO BID PRN pain #4 tabs 12/04/24 oxycodone 5 mg tablet 5 mg PO BID PRN pain #5 tabs 12/06/24 amoxicillin 500 mg tablet 500 mg PO Q12H 10 days #20 tabs 08/14/25 benzocaine 20 % mucosal aerosol 1 appl mucous membrane BID PRN 08/14/25 spray (HurriCaine) mouth irritation #57 grams Allergies Allergy/AdvReac Type Severity Reaction Status Date / Time No Known Allergies (No Known Allergy Verified 08/14/25 16:05 Allergies*) Review of Systems Review of Systems: Pertinent review of systems as mentioned in HPI. All other system otherwise negative. [facility] Past Medical History [facility] Narrative: Medical history as mentioned in HPI Medical History Diabetes type 2, controlled Asthma Hypothyroid Social History Social History (Updated 12/25/24 @ 14:56 by Maru Bryant) Household Members: Family Housing: House Alcohol intake: never Patient Tobacco Use Status: Former Tobacco user Advance Directives: No Advance Directives Information Provided: No Do you have a plan to hurt others: No Plan service: No Current occupational status: disabled Current occupation: right hand dominant Physical Exam ED Exam Exam: General: Pleasant, no distress, interacting appropriately Head: Normacephalic, atraumatic ENT: oral mucosa moist, erythema of the bilateral tonsils, no signs of peritonsillar abscess no stridor on exam. Patient does have right-sided cervical lymphadenopathy on exam. There is some exudate on the oropharynx area. Neurological: Awake and alert, no facial droop noted Skin: Warm and dry Psychiatric: Appropriate mood and thoughts Vital Signs: Vital Signs - 24 hr 08/14/25 16:01 Temperature 98.2 F Pulse Rate 89 Respiratory Rate 16 Blood Pressure 140/71 H Pulse Oximetry 95 Oxygen Delivery Method Room Air BMI result Body Mass Index 34.5 Course Course Course Narrative: This is a Rapid Medical Exam performed in triage by Mildred Valiente PA-C. Full HPI, ROS and PE to be performed by primary ED provider. 65 yo Guatemalan speaking female w/pmhx asthma, DM, hypothyroid presenting to the ED c/o right throat pain radiating to R ear x2 days. states she has difficulty swallowing due to pain PE: +R anterior cervical lymphadenopathy. +posterior oropharyngeal swelling. Plan: SARs, Rapid strep Medications Administered Discontinued Medications Generic Name Dose Route Start Last Admin Trade Name Freq PRN Reason Stop Dose Admin Amoxicillin 1,000 mg 08/14/25 16:36 08/14/25 17:25 Amoxicillin 500 Mg Capsule PO 08/14/25 16:37 1,000 mg ONCE ONE Administration Medical Decision Making Medical Decision Making [facility] Narrative: 65-year-old female presented hospital today for 2 days of sore throat. There is exudate on the tonsils in the oropharynx area. It is positive for strep. We will plan to give patient a p.o. amoxicillin here. Patient will be discharged with amoxicillin course. inspector wire rope was used for this encounter. Patient will be discharged no concern of airway compromise at this time. Differential Diagnosis Differential Diagnoses: The differential diagnosis associated with the presentation includes Strep pharyngitis Lab Data [facility] Lab Attestation statement: I reviewed the patient's lab results. Labs: Lab Results 08/14/25 Range/Units 16:15 Influenza Type A (PCR) NEGATIVE (Negative) Influenza Type B (PCR) NEGATIVE (Negative) RSV RNA Qual (PCR) NEGATIVE (Negative) SARS-CoV-2 RNA (RT-PCR) NEGATIVE (Negative) S. pyogenes GrpA LEI Positive A (Negative) Prescription Management I considered prescription management with: Antibiotic Discharge Plan Discharge Clinical Impression: Acute streptococcal pharyngitis Patient Disposition: Home, Self-Care Instructions: Strep Throat (ED) Prescriptions: New amoxicillin 500 mg tablet 500 mg PO Q12H 10 Days Qty: 20 0RF HurriCaine 20 % aerosol,spray 1 appl mucous membrane BID PRN (Reason: mouth irritation) Qty: 57 0RF No Action levothyroxine 175 mcg tablet 1 tab PO DAILY@0600 insulin glargine [Lantus Solostar U-100 Insulin] 100 unit/mL (3 mL) insulin pen 45 unit subcut BEDTIME albuterol sulfate 90 mcg/actuation HFA aerosol inhaler 2 inh inhalation Q6-8H PRN (Reason: shortness of breath or wheezing) Qty: 18 1RF prednisone 20 mg tablet 20 mg PO DAILY Qty: 3 0RF albuterol sulfate 90 mcg/actuation HFA aerosol inhaler 2 puff inhalation Q4-6H PRN (Reason: shortness of breath or wheezing) Qty: 8.5 1RF prednisone 50 mg tablet 50 mg PO DAILY Qty: 5 0RF triamcinolone acetonide 0.1 % ointment 1 appl topical BID 7 Days Qty: 30 0RF lidocaine [AsperFlex (lidocaine)] 4 % adhesive patch,medicated 1 patch topical DAILY PRN (Reason: pain) Qty: 30 0RF acetaminophen [Tylenol Extra Strength] 500 mg tablet 1,000 mg PO Q8H PRN (Reason: pain) Qty: 30 0RF ibuprofen 600 mg tablet 600 mg PO Q6H PRN (Reason: pain) Qty: 30 0RF tramadol 50 mg tablet 50 mg PO BID PRN (Reason: pain) Qty: 4 0RF oxycodone 5 mg tablet 5 mg PO BID PRN (Reason: pain) Qty: 5 0RF Rx Instructions: Partial Fill upon patient request. Print Language: Guatemalan
[2025-08-14 16:25] LABS: IDNOW Serial# 55D5AD1C; Strep A Nucleic Acid Positive (Negative)
[2025-08-14 17:09] LABS: Resp Syncy Virus RNA Qual PCR NEGATIVE (Negative); SARS COV2 PCR INHOUSE NEGATIVE (Negative)
[2025-08-14 17:29] VITALS: BP 140/71; PULSE 89; RESP 16; TEMP 36.8; O2SAT 95
--- OUTSIDE RECORDS SUMMARY | 2025-08-14 17:55 | XMS_ITS | Clinical Summary ---
Author Organization [facility] Address [address] [place] [address] Care Team Providers Care Manpower Development Advisor Name Role Phone Unknown Primary Care Provider [phone] Allergies No known active allergies Medications levothyroxine (SYNTHROID, LEVOTHROID) 175 MCG tablet Take 175 mcg by mouth daily on an empty stomach. Active oxyCODONE-aceta minophen (PERCOCET) 5-325 mg per tablet Take 1 [...] or chew. Active predniSONE (DELTASONE) 20 MG tabletIndicatio ns:Skin rash Take 3 tablets (60 mg total) by mouth daily. Take 60 mg for 6 days then 40 mg for 7 days then 20 mg for 7 days. Do not start before November 28, 2019. 39 tablet 0 Active triamcinolone (KENALOG) 0.1 % ointmentIndicat ions:Skin rash Apply topically 2 (two) times a day. 453.6 g 0 Active insulin glargine (LANtus) 100 units/mL injectionIndica tions:Skin rash Inject 0.35 mL (35 Units total) under the skin nightly. 10 mL 0 Active Resolved Problems Problem Noted Date Diagnosed Date Resolved Date Skin rash 11/22/2019 12/01/2023 Family History Medical History Relation Name Comments Asthma Father Diabetes Mother Relation Name Status Comments Father Mother Social History Tobacco Use Types Packs/Day Years Used Date Smoking Tobacco: Never Smokeless Tobacco: Never Alcohol Use Standard Drinks/Week Comments Not Currently 0 (1 standard drink = 0.6 oz pur e alcohol) Comments Unknown Sex and Gender Information Value Date Recorded Sex Assigned at Not on file Legal Sex Female 9:42 PM EST Gender Identity Not on file Sexual Orientation Not on file Last Filed Vital Signs Vital Sign Reading Time Taken Comments Blood Pressure 136/62 11/27/2019 3:52 AM EDT Pulse 65 11/27/2019 3:52 AM EDT Temperature 35.9 C (96.7 F) 11/27/2019 3:52 AM EDT Respiratory Rate 18 11/27/2019 3:52 AM EDT [...] 50+ (1 of 1 - PCV) 2011 RSV Vaccine 50 years and old er and Patients (1 - Risk 50-74 years 1-dose series) 2011 Zoster (Shingles) Vaccine (1 of 2) 2011 Influenza Vaccine 04/19/2025 COVID-19 Vaccine ( - 2023-2 5 season) 2025 Hemoglobin A1C Discontinued 11/23/2019 HIV Screening Completed [...] Virus (HCV) Antibody (11/25/2019 4:15 PM EDT) Hepatitis C Antibody 0.17 0.00 - 0.79 S/CO ratio HOSPITAL LAB Hepatitis C Antibody Interpretation Nonreactive Nonreactive HOSPITAL LAB Comment:Performed at [facility], [place], [place] License 0385 [place] [id number] Blood specimen (specimen) Blood specimen / Unknown 11/25/2019 4:15 PM EDT 11/25/2019 4:51 PM EDT us Chidi Pickett Jr., MD LAB BLOOD ORDERABLES Final Result Performing Organization Address City/[facility]/ZIP Co de Phone Number HOSPITAL LAB * HIV 1/2 Ag/Ab CMIA Reflex to Confirmation (11/25/2019 4:15 PM EDT) Pathologist [facility] HIV 1/2 Ag/Ab CMIA Nonreactive Nonreactive [facility]OSPITAL LAB Comment: Results show no evidence of infection by HIV 1/2. If clinically indicated, repeat CMIA or test by nucleic acid amplification. Performed at [facility], [place], [place] License 0385 [place] [id number] Blood specimen (specimen) Blood specimen / Unknown 11/25/2019 4:15 PM EDT 11/25/2019 4:51 PM EDT us Chidi Pickett Jr., MD LAB BLOOD ORDERABLES Final Result [facility]ITAL [facility] * (ABNORMAL) Hemoglobin A1c with Estimated Average Glucose (11/23/2019 1:44 PM EST) Hemoglobin A1C 11.8(H) <5.7 % [facility]ITAL [facility] Comment: A1c% Interpretation 5.7 - 6.0 Increase risk of diabetes 6.1 - 6.4 Higher risk of diabetes > or = 6.5 Consistent with diabetes Diabetes Care, 33(Supp 1):S1-S61, 2010 Estimated Average Glucose 292 mg/dL [facility] Blood specimen (specimen) Blood specimen / Unknown 11/23/2019 1:44 PM EST 11/23/2019 1:57 PM EST Comment:#PT HARD VEIN AT07:3 5/AB us Rubi Browning MD LAB BLOOD ORDERABLES Final Re sult HOSPITAL LAB from Last 3 Months or Most Recently Relevant to Health Maintenance Insurance [facility] Advance Directives * Full Code (Latest Code Status on File) Date Activated Date Inactivated Comments 11/22/2019 7:23 AM Care Teams Manpower Development Advisor Relationship Specialty Start Date End Date Unknown Unknow Provider Address PCP - General 11/21/19
== END 2025-08-14 17:30 | disposition home or self-care (01) ==
PROVIDERS: Physician Assistant; Emergency Provider Student in an Organized Health Care Education/Training Program
DX: J02.0 Streptococcal pharyngitis (principal); E11.9 Type 2 diabetes mellitus without complications; J45.909 Unspecified asthma, uncomplicated
CPT/HCPCS: 87637; 87651; 99283; 99284

== ENCOUNTER 2025-09-18 16:28 | Emergency (ER) | payer OTHER, SELFPAY ==
[2025-09-18 16:42] VITALS: BP 145/82; BP 155/83; PULSE 78; PULSE 80; RESP 18; TEMP 36.7; O2SAT 96; O2SAT 98; BMI 35.2
--- NOTE | 2025-09-18 16:57 | ED_ITS ---
HPI - General Adult General Chief complaint: Back Pain/Injury Stated complaint: Back pain x2 days hx of diabetes, hyperglycemia Time Seen by Provider: 09/18/25 16:57 Source: patient Mode of arrival: ambulatory Limitations: no limitations History of Present Illness ED Provider: Dr. Patiño HPI narrative: This is a 65-year-old female history of diabetes presented hospital today for back pain that started yesterday. Patient stated that she was bending forward and then stood up and we will have bilateral back pain. Denies any saddle paresthesia no red flag symptoms. no signs of bowel incontinence or retention of urine. The patient stated this is a back pain on bilateral of her back. No other injuries. No other trauma no falls. Related Data Home Medications ?Medication ?Instructions ?Recorded ?Confirmed insulin glargine 100 unit/mL (3 45 unit subcut BEDTIME 12/03/22 12/03/22 mL) subcutaneous pen (Lantus Solostar U-100 Insulin) levothyroxine 175 mcg tablet 1 tab PO DAILY@0600 12/0312/03/22 Previous Rx's ?Medication ?Instructions ?Recorded albuterol sulfate 90 mcg/actuation 2 inh inhalation Q6 -8H PRN 12/05/22 aerosol inhaler shortness of breath or wheez ing #18 grams prednisone 20 mg tablet 20 mg PO DAILY #3 tabs 12/05 albuterol sulfate 90 mcg/actuation 2 puff inhalation Q 4-6H PRN 02/04/23 aerosol inhaler shortness of breath or wheez ing #8.5 grams prednisone 50 mg tablet 50 mg PO DAILY #5 tabs 02/04 triamcinolone acetonide 0.1 % 1 appl topical BID 1 wee k #30 grams 05/22/24 topical ointment acetaminophen 500 mg tablet 1,000 mg (2 x 500 mg) PO Q 8H PRN 12/03/24 (Tylenol Extra Strength) pain #30 tabs ibuprofen 600 mg tablet 600 mg PO Q6H PRN pain #30 t abs 12/03/24 lidocaine 4 % topical patch 1 patch topical DAILY PRN pain #30 12/03/24 (AsperFlex (lidocaine)) ea tramadol 50 mg tablet 50 mg PO BID PRN pain #4 tab s 12/04/24 oxycodone 5 mg tablet 5 mg PO BID PRN pain #5 tabs 12/06/24 amoxicillin 500 mg tablet 500 mg PO Q12H 10 days #20 t abs 08/14/25 benzocaine 20 % mucosal aerosol 1 appl mucous membrane BID PRN 08/14/25 spray (HurriCaine) mouth irritation #57 grams acetaminophen 500 mg tablet 1,000 mg (2 x 500 mg) PO Q 8H 10 09/18/25 days #60 tabs cyclobenzaprine 5 mg tablet 5 mg PO TID PRN muscle spa sm 6 09/18/25 days #20 tabs lidocaine 5 % topical patch 1 patch topical DAILY #15 ea 09/18/25 nystatin 100,000 unit/gram topical 1 appl topical TID #15 grams 09/18/25 ointment Allergies Allergy/AdvReac Type Severity Reaction Status Date / Time No Known Allergies (No Known Allergy Verified 09/18/25 16:44 Allergies*) Review of Systems 2 Review of Systems: Pertinent review of systems as mentioned in HPI. All other system otherwise negative. [facility] Past Medical History [facility] Narrative: Medical history as mentioned in HPI Medical History Diabetes type 2, controlled Asthma Hypothyroid Social History Social History (Updated 12/25/24 @ 14:56 by Maru Bryant) Household Members: Family Housing: House Alcohol intake: never Patient Tobacco Use Status: Former Tobacco user Advance Directives: No Advance Directives Information Provided: No service: No Current occupational status: disabled Current occupation: right hand dominant Physical Exam ED Exam Exam: General: Pleasant, no distress, interacting appropriately Head: Normacephalic, atraumatic ENT: oral mucosa moist, neck supple, no tracheal deviation MSK: Bilateral lumbar spine tenderness on palpation, increasing tender when she rotates her spine Neurological: Awake and alert, no facial droop noted Skin: Warm and dry Psychiatric: Appropriate mood and thoughts Vital Signs: Vital Signs - 24 hr 09/18/25 16:42 Temperature 98.0 F Pulse Rate 78 Respiratory Rate 18 Blood Pressure 155/83 H Pulse Oximetry 96 Oxygen Delivery Method Room Air BMI result Body Mass Index 35.2 Medical Decision Making Medical Decision Making [facility] Narrative: 65-year-old female history of diabetes presented hospital today for evaluation of lower back pain after bending forward to worm picker her dog today. I suspect this is musculoskeletal in nature based on her presentation. We will plan to discharge patient on acetaminophen, lidocaine, Flexeril to take. Patient is also complaining of some rash underneath her breasts bilaterally. This appears to be fungal in nature. We will plan to prescribe patient some nystatin ointment to take. Encouraged her to follow up with her primary care doctor. meter technician was used for this encounter. Patient agrees and understands with the plan all questions were addressed. Differential Diagnosis Differential Diagnoses: The differential diagnosis associated with the presentation includes Fungal rash, low back pain, lumbago Lab Data [facility] Lab Attestation statement: I reviewed the patient's lab results. 09/18/25 17:11 09/18/25 17:11 Labs: Lab Results 09/18/25 Range/Units 17:11 WBC 5.5 (4.8-10.8) X10*3/uL RBC 4.23 (4.20-5.50) X10*6/uL Hgb 12.8 (12.0-16.0) g/dl Hct 36.2 L (37.0-47.0) % MCV 85.6 (80.0-98.0) fL MCH 30.3 (27.0-33.0) pg MCHC 35.4 H (31.0-35.0) g/dl RDW 11.9 (11.0-16.0) % Plt Count 297 (160-400) X10*3/uL MPV 10.0 (9.4-12.3) fL Immature Gran % (Auto) 0.2 (0.0-0.4) % Neut % (Auto) 58.8 (45-73) % Lymph % (Auto) 31.6 (20-40) % Stanly % (Auto) 5.8 (2-11) % Eos % (Auto) 2.5 (0-4) % Baso % (Auto) 1.1 (0-2) % Lymph # (Auto) 1.8 (1.2-4.9) X10*3/uL Stanly # (Auto) 0.3 (0.1-1.2) X10*3/uL Eos # (Auto) 0.1 (0.0-0.4) X10*3/uL Baso # (Auto) 0.1 (0.0-0.2) X10*3/uL Abs Immat Gran (auto) 0.01 (0.00-0.03) X10*3/uL Absolute Neuts (auto) 3.3 (2.0-8.3) x10*3/uL Absolute Nucleated RBC 0.000 (0.0-0.012) X10*3/uL Nucleated RBC % (auto) 0.0 (0.0-0.2) /100WBC Sodium 137 (135-145) mmol/L Potassium 3.9 (3.3-5.1) mmol/L Chloride 104 (96-108) mmol/L Carbon Dioxide 27 (22-29) mmol/L Anion Gap 10 L (12-20) BUN 17 H (9-16) mg/dL Creatinine 0.68 (0.5-1.4) mg/dL Estim Creat Clear Calc 89.1 Estimated GFR > 60 Random Glucose 346 H (60-115) mg/dL Calcium 9.3 (8.4-10.2) mg/dL Total Bilirubin 0.4 (0.0-1.0) mg/dL AST 16 (5-31) U/L ALT 16 (0-31) U/L Alkaline Phosphatase 71 (39-117) U/L Total Protein 6.9 (6.5-8.0) g/dL Albumin 3.7 (3.5-5.0) g/dL Beta-Hydroxybutyrate 0.04 (0.02-0.27) mmol/L Discharge Plan Discharge Clinical Impression: Back pain Patient Disposition: Home, Self-Care Instructions: Acute Low Back Pain (ED), Lower Back Exercises (ED) Additional Instructions: Follow up with your primary care doctor. Prescriptions: New acetaminophen 500 mg tablet 1,000 mg PO Q8H 10 Days Qty: 60 0RF lidocaine 5 % adhesive patch,medicated 1 patch topical DAILY Qty: 15 0RF Rx Instructions: leave on most painful area for up to 12 hrs cyclobenzaprine 5 mg tablet 5 mg PO TID PRN (Reason: muscle spasm) 6 Days Qty: 20 0RF nystatin 100,000 unit/gram ointment 1 appl topical TID Qty: 15 0RF No Action levothyroxine 175 mcg tablet 1 tab PO DAILY@0600 insulin glargine [Lantus Solostar U-100 Insulin] 100 unit/mL (3 mL) insulin pen 45 unit subcut BEDTIME albuterol sulfate 90 mcg/actuation HFA aerosol inhaler 2 inh inhalation Q6-8H PRN (Reason: shortness of breath or wheezing) Qty: 18 1RF prednisone 20 mg tablet 20 mg PO DAILY Qty: 3 0RF albuterol sulfate 90 mcg/actuation HFA aerosol inhaler 2 puff inhalation Q4-6H PRN (Reason: shortness of breath or wheezing) Qty: 8.5 1RF prednisone 50 mg tablet 50 mg PO DAILY Qty: 5 0RF triamcinolone acetonide 0.1 % ointment 1 appl topical BID 7 Days Qty: 30 0RF lidocaine [AsperFlex (lidocaine)] 4 % adhesive patch,medicated 1 patch topical DAILY PRN (Reason: pain) Qty: 30 0RF acetaminophen [Tylenol Extra Strength] 500 mg tablet 1,000 mg PO Q8H PRN (Reason: pain) Qty: 30 0RF ibuprofen 600 mg tablet 600 mg PO Q6H PRN (Reason: pain) Qty: 30 0RF tramadol 50 mg tablet 50 mg PO BID PRN (Reason: pain) Qty: 4 0RF oxycodone 5 mg tablet 5 mg PO BID PRN (Reason: pain) Qty: 5 0RF Rx Instructions: Partial Fill upon patient request. amoxicillin 500 mg tablet 500 mg PO Q12H 10 Days Qty: 20 0RF HurriCaine 20 % aerosol,spray 1 appl mucous membrane BID PRN (Reason: mouth irritation) Qty: 57 0RF Referrals: Physical Therapy - [facility] [Outside] Print Language: Estonian
--- OUTSIDE RECORDS SUMMARY | 2025-09-18 17:08 | XMS_ITS | Clinical Summary ---
Author Organization [facility] Address [address] [place] [address] Care Team Providers Care Community Engagement Coordinator Name Role Phone Unknown Primary Care Provider [phone] Allergies No known active allergies Medications levothyroxine [...] 2) 2011 Influenza Vaccine 04/19/2025 COVID-19 Vaccine (1 - 2024-2 6 season) 2025 Hemoglobin A1C Discontinued 11/23/2019 HIV [...] Interpretation Nonreactive Nonreactive HOSPITAL LAB Comment:Performed at [facility], [place], [place] License [address] [place] [id number] Blood specimen (specimen) Blood specimen / Unknown 11/25/2019 4:15 PM EDT 11/25/2019 4:51 PM EDT us Chidi Pickett Jr., MD LAB BLOOD ORDERABLES Final Result Performing Organization Address City/[facility]/ZIP Co de Phone Number HOSPITAL LAB * HIV 1/2 Ag/Ab CMIA Reflex to Confirmation (11/25/2019 4:15 PM EDT) Pathologist [facility] HIV 1/2 Ag/Ab CMIA Nonreactive Nonreactive HOSPITAL LAB Comment: Results show no evidence of infection by HIV 1/2. If clinically indicated, repeat CMIA or test by nucleic acid amplification. Performed at [facility], [place], [place] License [address] [place] [id number] Blood specimen (specimen) Blood specimen / Unknown [...] Most Recently Relevant to Health Maintenance Insurance [facility] Advance Directives * Full Code (Latest Code Status on File) Date Activated Date Inactivated Comments 11/22/2019 7:23 AM Care Teams Community Engagement Coordinator Relationship Specialty Start Date End Date Unknown Unknow Provider Address PCP - General 11/21/19
[2025-09-18 17:20] LABS: MANUAL DIFF FLAG NO
[2025-09-18 17:23] LABS: Hematocrit 36.2 % (37.0-47.0); Hemoglobin 12.8 g/dl (12.0-16.0); Imm Gran Abs Auto 0.01 X10*3/uL (0.00-0.03); Imm Gran Pct Auto 0.2 % (0.0-0.4); Lymphocytes Absolute Auto 1.8 X10*3/uL (1.2-4.9); Mean Corpuscular HGB Conc 35.4 g/dl (31.0-35.0); Mean Corpuscular Hemoglobin 30.3 pg (27.0-33.0); Mean Corpuscular Volume 85.6 fL (80.0-98.0); NRBC Abs Auto 0.000 X10*3/uL (0.0-0.012); NRBC Pct Auto 0.0 /100WBC (0.0-0.2); Platelet Count 297 X10*3/uL (160-400); Red Blood Count 4.23 X10*6/uL (4.20-5.50); White Blood Count 5.5 X10*3/uL (4.8-10.8)
[2025-09-18 17:36] LABS: Alanine Aminotransferase 16 U/L (0-31); Albumin Level 3.7 g/dL (3.5-5.0); Alkaline Phosphatase 71 U/L (39-117); Anion Gap 10 (12-20); Aspartate Amino Transferase 16 U/L (5-31); Blood Urea Nitrogen 17 mg/dL (9-16); Calcium 9.3 mg/dL (8.4-10.2); Carbon Dioxide 27 mmol/L (22-29); Chloride 104 mmol/L (96-108); Creatinine Clr Calc Pharmacy 89.1; Estimated Glomerular Filt Rate > 60; Potassium 3.9 mmol/L (3.3-5.1); Sodium 137 mmol/L (135-145); Total Protein 6.9 g/dL (6.5-8.0)
[2025-09-18 18:20] VITALS: BP 155/83; PULSE 78; RESP 18; TEMP 36.7; O2SAT 96
== END 2025-09-18 18:21 | disposition home or self-care (01) ==
PROVIDERS: Emergency Provider Student in an Organized Health Care Education/Training Program
DX: M54.9 Dorsalgia, unspecified (principal); E11.9 Type 2 diabetes mellitus without complications; Z79.899 Other long term (current) drug therapy
CPT/HCPCS: 36415; 80053; 82010; 85025; 99282; 99283